=== PATIENT | male | born 1965 | race Two or more races ===

== ENCOUNTER 2018-02-24 04:16 | Emergency (ER) | payer SELFPAY ==
[~2018-02-24] VITALS: Ht 162.6 cm; Wt 77.1 kg
[~2018-02-24 04:16] MED LIST: CITA10TA8 PO
--- NOTE | 2018-02-24 04:32 | PHYS DOC ---
Past Medical History Past Medical History: Depression, Hypertension Past Surgical History: Other Additional Past Surgical Histo: Hernia repair, cyst removal Alcohol Use: Heavy Drug Use: None Adult General Chief Complaint Chief Complaint: ALCOHOL INTOXICATION HPI HPI Patient is a 52 year old man who presents with alcohol intoxication Patient has a history of alcoholism. He's been drinking heavily for 20 years. Over the last 3 weeks, he's been binge drinking about a fifth of vodka daily. He decided to stop drinking, but didn't have a phone at his house so he went outside and flagged down a car to use a cell phone. They called 911 and EMS brought him to the emergency department. He is currently seeking alcohol detoxification. His last drink was 30 minutes prior to presentation. He had a shot of vodka. He denies any chest pain, shortness of breath, abdominal pain or vomiting. He denies SI or HI. Review of Systems Review of Systems Constitutional: Denies fever or chills Eyes: Denies change in visual acuity, redness, or eye pain HENT: Denies nasal congestion or sore throat Respiratory: Denies cough or shortness of breath Cardiovascular: Denies chest pain or palpitations GI: Denies abdominal pain, nausea, vomiting, bloody stools or diarrhea : Denies dysuria or hematuria Musculoskeletal: Denies back pain or joint pain Integument: Denies rash or skin lesions Neurologic: Denies headache, focal weakness or sensory changes Endocrine: Denies polyuria or polydipsia All other systems were reviewed and found to be within normal limits, except as documented in this note. Current Medications Current Medications Current Medications Medications (Trade) Dose Ordered Sig/Flaquita Start Time Stop Time Status Last Admin Dose Admin Lorazepam (Ativan) 1 mg 1X ONCE 02/24/18 07:15 02/24/18 07:16 DC 02/24/18 07:16 1 MG Potassium Chloride (KCl Oral Soln) 40 meq 1X ONCE 02/24/18 05:30 02/24/18 05:31 DC 02/24/18 05:40 40 MEQ Allergies Allergies Allergies Coded Allergies Type Severity Reaction Last Updated Verified aspirin Allergy Intermediate 02/24/18 Yes Physical Exam Physical Exam Constitutional: Well developed, well nourished, no acute distress, non-toxic appearance. Inebriated HENT: Normocephalic, atraumatic, bilateral external ears normal, oropharynx moist, no oral exudates, nose normal. Eyes: PERRLA, EOMI, conjunctiva normal, no discharge. Neck: Normal range of motion, no tenderness, supple, no stridor. Cardiovascular:Heart rate regular rhythm, no murmur Lungs & Thorax: Bilateral breath sounds clear to auscultation Abdomen: Bowel sounds normal, soft, no tenderness, no masses, no pulsatile masses. Skin: Warm, dry, no erythema, no rash. Back: No tenderness, no CVA tenderness. Extremities: No tenderness, no cyanosis, no clubbing, ROM intact, no edema. 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 Gait normal Psychologic: Affect normal, judgement normal, mood normal. Current Patient Data Vital Signs Vital Signs Date Time Temp Pulse Resp B/P (MAP) Pulse Ox O2 Delivery O2 Flow Rate FiO2 02/24/18 08:24 107 14 154/87 (109) 98 Room Air 02/24/18 04:27 98.6 98.6 Lab Values Laboratory Tests Test 02/24/18 04:30 02/24/18 04:48 White Blood Count 4.9 x10^3/uL (4.0-11.0) Red Blood Count 4.82 x10^6/uL (4.30-5.70) Hemoglobin 15.2 g/dL (13.0-17.5) Hematocrit 43.0 % (39.0-53.0) Mean Corpuscular Volume 89 fL (79-100) Mean Corpuscular Hemoglobin 32 pg (25-35) Mean Corpuscular Hemoglobin Concent 35 g/dL (31-37) Red Cell Distribution Width 18.1 % (11.5-14.5) H Platelet Count 253 x10^3/uL (140-400) Neutrophils (%) (Auto) 50 % (31-73) Lymphocytes (%) (Auto) 35 % (24-48) Monocytes (%) (Auto) 13 % (0-9) H Eosinophils (%) (Auto) 1 % (0-3) Basophils (%) (Auto) 1 % (0-3) Neutrophils # (Auto) 2.4 x10^3uL (1.8-7.7) Lymphocytes # (Auto) 1.7 x10^3/uL (1.0-4.8) Monocytes # (Auto) 0.7 x10^3/uL (0.0-1.1) Eosinophils # (Auto) 0.1 x10^3/uL (0.0-0.7) Basophils # (Auto) 0.0 x10^3/uL (0.0-0.2) Sodium Level 140 mmol/L (136-145) Potassium Level 3.2 mmol/L (3.5-5.1) L Chloride Level 98 mmol/L (98-107) Carbon Dioxide Level 25 mmol/L (21-32) Anion Gap 17 (6-14) H Blood Urea Nitrogen 10 mg/dL (8-26) Creatinine 0.8 mg/dL (0.7-1.3) Estimated GFR (Cockcroft-Gault) 100.7 BUN/Creatinine Ratio 13 (6-20) Glucose Level 129 mg/dL (70-99) H Calcium Level 9.4 mg/dL (8.5-10.1) Magnesium Level 1.9 mg/dL (1.8-2.4) Total Bilirubin 0.9 mg/dL (0.2-1.0) Aspartate Amino Transferase (AST) 80 U/L (15-37) H Alanine Aminotransferase (ALT) 185 U/L (16-63) H Alkaline Phosphatase 108 U/L (46-116) Total Protein 8.4 g/dL (6.4-8.2) H Albumin 4.5 g/dL (3.4-5.0) Albumin/Globulin Ratio 1.2 (1.0-1.7) Lipase 220 U/L (73-393) Ethyl Alcohol Level 138 mg/dL (0-10) H Urine Opiates Screen Neg (NEG) Urine Methadone Screen Neg (NEG) Urine Barbiturates Neg (NEG) Urine Phencyclidine Screen Neg (NEG) Urine Amphetamine/Methamphetamine Neg (NEG) Urine Benzodiazepines Screen Pos (NEG) Urine Cocaine Screen Neg (NEG) Urine Cannabinoids Screen Neg (NEG) Urine Ethyl Alcohol Pos (NEG) Laboratory Tests 02/24/18 04:30 Laboratory Tests 02/24/18 04:30 EKG EKG ECG 04:50 NSR @ [address]-T wave changes Radiology/Procedures Radiology/Procedures [] Course & Med Decision Making Course & Med Decision Making Pertinent Labs and Imaging studies reviewed. (See chart for details) Emergency Department Course Patient presents inebriated for alcohol detoxification program. DDx-alcohol abuse, poly substance abuse, dehydration, electrolyte abnormality Patient was stable in the ED. Labs remarkable for hypokalemia, elevated serum alcohol level. Patient was given potassium replacement. 05:20: Patient medically cleared for detox evaluation. 05:20 Case discussed with [facility] psychiatric team who will come to the ED to evaluate the patient. 05:55 Stacey from [facility] is here evaluating the patient. Patient will follow-up with alcohol detox program per [facility]. Will discharge from ED. Patient given prescriptions for Librium and potassium. Dragon Disclaimer Dragon Disclaimer This electronic medical record was generated, in whole or in part, using a voice recognition dictation system. Departure Departure Impression: Primary Impression: Alcohol intoxication Additional Impressions: Depression Hypokalemia Disposition: 01 HOME, SELF-CARE Condition: STABLE Referrals: NO PCP (PCP) CASSY OCHOA MD Follow-up tomorrow for further evaluation Patient Instructions: Alcohol Intoxication, Alcohol Withdrawal, Depression, Adult, Hypokalemia Additional Instructions: Follow-up with [facility] adult alcohol detoxification program at Emergency Department discharge. [facility] Address: [address] [place] [address] Scripts Chlordiazepoxide Hcl (CHLORDIAZEPOXIDE HCL) 25 Mg Capsule 25 MG PO TID for 5 Days, #15 CAP Prov: VERO IQBAL MD 02/24/18 Potassium Chloride (POTASSIUM CHLORIDE) 20 Meq Tablet.er 20 MEQ PO DAILY for 5 Days, #5 TAB.SR Prov: VERO IQBAL MD 02/24/18 Problem Qualifiers Primary Impression: Alcohol intoxication Complication of substance-induced condition: with unspecified complication Qualified Codes: F10.929 - Alcohol use, unspecified with intoxication, unspecified Additional Impressions: Depression Depression Type: unspecified Qualified Codes: F32.9 - Major depressive disorder, single episode, unspecified VERO IQBAL MD Feb 24, 2018 04:32
[2018-02-24 04:36] LABS: BASO % 1 % (0-3); EOS # 0.1 x10^3/uL (0.0-0.7); EOS % 1 % (0-3); HEMOGLOBIN 15.2 g/dL (13.0-17.5); LYMPH # 1.7 x10^3/uL (1.0-4.8); LYMPH % 35 % (24-48); MEAN CORPUSCULAR HEMOGLOBIN 32 pg (25-35); MEAN CORPUSCULAR HGB CONC 35 g/dL (31-37); MEAN CORPUSCULAR VOLUME 89 fL (79-100); MONO # 0.7 x10^3/uL (0.0-1.1); MONO % 13 % (0-9); NEUT # 2.4 x10^3uL (1.8-7.7); NEUT % 50 % (31-73); PLATELET COUNT 253 x10^3/uL (140-400); RED BLOOD COUNT 4.82 x10^6/uL (4.30-5.70); RED CELL DISTRIBUTION WIDTH 18.1 % (11.5-14.5); WHITE BLOOD COUNT 4.9 x10^3/uL (4.0-11.0)
[2018-02-24 04:46] LABS: CALCIUM 9.4 mg/dL (8.5-10.1); CREATININE 0.8 mg/dL (0.7-1.3); GFR 100.7; POTASSIUM 3.2 mmol/L (3.5-5.1)
[2018-02-24 04:51] LABS: ALBUMIN 4.5 g/dL (3.4-5.0); ALBUMIN/GLOBULIN RATIO 1.2 (1.0-1.7); MAGNESIUM 1.9 mg/dL (1.8-2.4); TOTAL BILIRUBIN 0.9 mg/dL (0.2-1.0); TOTAL PROTEIN 8.4 g/dL (6.4-8.2)
[2018-02-24 05:10] LABS: BARBITURATES NEG (NEG); BENZODIAZEPINES POS (NEG); CANNABINOIDS NEG (NEG); COCAINE NEG (NEG); METHADONE NEG (NEG); OPIATES NEG (NEG); PHENCYCLIDINE NEG (NEG)
[2018-02-24 05:12] LABS: AMPHETAMINE/METHAMPHETAMINE NEG (NEG)
[2018-02-24] MEDS ORDERED: POTASSIUM CHLORIDE 20 MEQ/15 ML ORAL LIQUID. PO ONE (05:30)
[2018-02-24] MEDS ORDERED: POTA20TA82 PO (06:01)
--- NOTE | 2018-02-24 06:02 | EKG ---
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
[2018-02-24] MEDS ORDERED: CHLO25CA9 PO (06:24)
[2018-02-24 08:24] VITALS: BP 154/87
== END 2018-02-24 08:30 | disposition home or self-care (01) ==
LOC: ER 04:16
DX: F10.229 Alcohol dependence with intoxication, unspecified (principal); E87.6 Hypokalemia; F32.9 Major depressive disorder, single episode, unspecified; I10 Essential (primary) hypertension; Z88.6 Allergy status to analgesic agent; Y90.6 Blood alcohol level of 120-199 mg/100 ml
CPT/HCPCS: 36415; 80053; 80307; 83690; 83735; 85025; 93005; 96374; 99285; G0480; J2060; G0479

== ENCOUNTER 2019-05-13 19:16 | Inpatient (IN) | payer MEDICAID ==
[~2019-05-13] VITALS: Ht 162.6 cm; Wt 73.0 kg
[~2019-05-13 19:16] MED LIST changes: +CHLO25CA9 PO; +POTA20TA4 PO
[2019-05-13 19:59] LABS: BILIRUBIN,URINE NEGATIVE (NEG); CLARITY,URINE CLEAR; COLOR,URINE YELLOW; NITRITE,URINE NEGATIVE (NEG); PROTEIN,URINE NEGATIVE (NEG-TRACE); UROBILINOGEN,URINE 0.2 mg/dL (0.2 mg/dL)
[2019-05-13] MEDS ORDERED: MULTIVIT INFUSN,ADULT 4,VIT K 10 ML, THIAMINE INJ 100 MG, FOLIC ACID INJ 1 MG in IV NOR... IV ONE (20:00)
[2019-05-13 20:05] LABS: AMPHETAMINE/METHAMPHETAMINE NEG (NEG); BARBITURATES NEG (NEG); BENZODIAZEPINES NEG (NEG); CANNABINOIDS NEG (NEG); COCAINE NEG (NEG); METHADONE NEG (NEG); OPIATES NEG (NEG); PHENCYCLIDINE NEG (NEG)
[2019-05-13 20:06] LABS: CALCIUM 8.9 mg/dL (8.5-10.1); CREATININE 0.9 mg/dL (0.7-1.3); GFR 87.6
[2019-05-13 20:12] LABS: ALBUMIN 4.1 g/dL (3.4-5.0); ALBUMIN/GLOBULIN RATIO 1.2 (1.0-1.7); TOTAL BILIRUBIN 0.7 mg/dL (0.2-1.0); TOTAL PROTEIN 7.6 g/dL (6.4-8.2)
[2019-05-13 20:14] LABS: HYALINE CASTS, URINE FEW /HPF; SQUAMOUS EPITHELIAL CELL,UR OCC /LPF
[2019-05-13 20:15] LABS: BACTERIA,URINE 0 /HPF (0-FEW); RBC,URINE 0 /HPF (0-2)
[2019-05-13 20:15] LABS: BASO % 1 % (0-3); EOS % 0 % (0-3); HEMOGLOBIN 16.7 g/dL (13.0-17.5); LYMPH # 2.3 x10^3/uL (1.0-4.8); LYMPH % 40 % (24-48); MEAN CORPUSCULAR HEMOGLOBIN 33 pg (25-35); MEAN CORPUSCULAR HGB CONC 35 g/dL (31-37); MEAN CORPUSCULAR VOLUME 94 fL (79-100); MONO # 0.5 x10^3/uL (0.0-1.1); MONO % 9 % (0-9); NEUT # 2.8 x10^3/uL (1.8-7.7); NEUT % 50 % (31-73); PLATELET COUNT 242 x10^3/uL (140-400); RED BLOOD COUNT 5.12 x10^6/uL (4.30-5.70); RED CELL DISTRIBUTION WIDTH 15.8 % (11.5-14.5); WHITE BLOOD COUNT 5.6 x10^3/uL (4.0-11.0)
[2019-05-13 20:18] LABS: ACETAMIN < 2 mcg/ml (10-30); ETHANOL 388 mg/dL (0-10); SALIC 4.4 mg/dL (2.8-20.0)
[2019-05-13] MEDS ORDERED: IOHEXOL 300 MG/ML 100ML VIAL. IV ONE (21:30)
[2019-05-13] MEDS ORDERED: CONTRAST GIVEN. MC PRN (21:30)
--- NOTE | 2019-05-13 22:11 | PHYS DOC ---
Past Medical History Past Medical History: Alcoholism, Depression, Hypertension Past Surgical History: Other Additional Past Surgical Histo: Hernia repair, cyst removal Alcohol Use: Heavy Additional Information: DRINKS VODKA Drug Use: None Adult General Chief Complaint Chief Complaint: SUICDAL IDEATION HPI HPI Patient is a 53 year old Male with history of depression, hypertension, alcohol abuse, who presents to the ED today complaining of alcohol intoxication and suicidal ideations. Patient reports he has been drinking for the last 1 week, he was found in the wolf complaining of alcohol intoxication and suicide ideations. He reports if he had a gun he would've shot himself but he has no access to a gun. Review of Systems Review of Systems Constitutional: Denies fever or chills [] Eyes: Denies change in visual acuity, redness, or eye pain [] HENT: Denies nasal congestion or sore throat [] Respiratory: Denies cough or shortness of breath [] Cardiovascular: No additional information not addressed in HPI [] GI: Denies abdominal pain, nausea, vomiting, bloody stools or diarrhea [] : Denies dysuria or hematuria [] Musculoskeletal: Denies back pain or joint pain [] Integument: Denies rash or skin lesions [] Neurologic: Denies headache, focal weakness or sensory changes [] Psych: alcohol intoxication and suicide ideation All other systems were reviewed and found to be within normal limits, except as documented in this note. Current Medications Current Medications Current Medications Medications (Trade) Dose Ordered Sig/Flaquita Start Time Stop Time Status Last Admin Dose Admin Info (CONTRAST GIVEN -- Rx MONITORING) 1 each PRN DAILY PRN 05/13/19 21:30 05/15/19 21:29 Iohexol (Omnipaque 300 Mg/ml) 75 ml 1X ONCE 05/13/19 21:30 05/13/19 21:31 DC Lorazepam (Ativan Inj) 2 mg 1X ONCE 05/13/19 20:15 05/13/19 20:19 DC 05/13/19 19:40 2 MG Multivitamins 10 ml/Thiamine HCl 100 mg/Folic Acid 1 mg/Sodium Chloride 1,011.2 ml @ 1,000.088 mls/hr 1X ONCE 05/13/19 20:00 05/13/19 21:00 DC 05/13/19 19:56 1,000.088 MLS/HR Allergies Allergies Allergies Coded Allergies Type Severity Reaction Last Updated Verified aspirin Allergy Intermediate 02/24/18 Yes Physical Exam Physical Exam Constitutional: Well developed, well nourished, no acute distress, non-toxic a ppearance. [] HENT: Normocephalic, atraumatic, bilateral external ears normal, oropharynx moist, no oral exudates, nose normal. [] Eyes: PERRLA, EOMI, conjunctiva normal, no discharge. [] Neck: Normal range of motion, no tenderness, supple, no stridor. [] Cardiovascular:Heart rate regular rhythm, no murmur [] Lungs & Thorax: Bilateral breath sounds clear to auscultation [] Abdomen: Bowel sounds normal, soft, no tenderness, no masses, no pulsatile masses. [] Skin: Warm, dry, no erythema, no rash. [] Back: No tenderness, no CVA tenderness. [] Extremities: No tenderness, no cyanosis, no clubbing, ROM intact, no edema. [] Neurologic: Alert and oriented X 3, normal motor function, normal sensory function, no focal deficits noted. [] Psychologic: flat affect, appears intoxicated Current Patient Data Vital Signs Vital Signs Date Time Temp Pulse Resp B/P (MAP) Pulse Ox O2 Delivery O2 Flow Rate FiO2 05/13/19 19:16 97.7 86 20 184/100 (128) 97 Room Air 97.7 Lab Values Laboratory Tests Test 05/13/19 19:30 05/13/19 19:40 Urine Collection Type Unknown Urine Color Yellow Urine Clarity Clear Urine pH 6.0 Urine Specific [place] 1.010 Urine Protein Negative mg/dL (NEG-TRACE) Urine Glucose (UA) Negative mg/dL (NEG) Urine Ketones (Stick) Negative mg/dL (NEG) Urine Blood Negative (NEG) Urine Nitrite Negative (NEG) Urine Bilirubin Negative (NEG) Urine Urobilinogen Dipstick 0.2 mg/dL (0.2 mg/dL) Urine Leukocyte Esterase Negative (NEG) Urine RBC 0 /HPF (0-2) Urine WBC 5-10 /HPF (0-4) Urine Squamous Epithelial Cells Occ /LPF Urine Bacteria 0 /HPF (0-FEW) Urine Hyaline Casts Few /HPF Urine Mucus Slight /LPF Urine Opiates Screen Neg (NEG) Urine Methadone Screen Neg (NEG) Urine Barbiturates Neg (NEG) Urine Phencyclidine Screen Neg (NEG) Urine Amphetamine/Methamphetamine Neg (NEG) Urine Benzodiazepines Screen Neg (NEG) Urine Cocaine Screen Neg (NEG) Urine Cannabinoids Screen Neg (NEG) Urine Ethyl Alcohol Pos (NEG) White Blood Count 5.6 x10^3/uL (4.0-11.0) Red Blood Count 5.12 x10^6/uL (4.30-5.70) Hemoglobin 16.7 g/dL (13.0-17.5) Hematocrit 48.0 % (39.0-53.0) Mean Corpuscular Volume 94 fL (79-100) Mean Corpuscular Hemoglobin 33 pg (25-35) Mean Corpuscular Hemoglobin Concent 35 g/dL (31-37) Red Cell Distribution Width 15.8 % (11.5-14.5) H Platelet Count 242 x10^3/uL (140-400) Neutrophils (%) (Auto) 50 % (31-73) Lymphocytes (%) (Auto) 40 % (24-48) Monocytes (%) (Auto) 9 % (0-9) Eosinophils (%) (Auto) 0 % (0-3) Basophils (%) (Auto) 1 % (0-3) Neutrophils # (Auto) 2.8 x10^3/uL (1.8-7.7) Lymphocytes # (Auto) 2.3 x10^3/uL (1.0-4.8) Monocytes # (Auto) 0.5 x10^3/uL (0.0-1.1) Eosinophils # (Auto) 0.0 x10^3/uL (0.0-0.7) Basophils # (Auto) 0.0 x10^3/uL (0.0-0.2) Sodium Level 144 mmol/L (136-145) Potassium Level 4.0 mmol/L (3.5-5.1) Chloride Level 105 mmol/L (98-107) Carbon Dioxide Level 27 mmol/L (21-32) Anion Gap 12 (6-14) Blood Urea Nitrogen 10 mg/dL (8-26) Creatinine 0.9 mg/dL (0.7-1.3) Estimated GFR (Cockcroft-Gault) 87.6 BUN/Creatinine Ratio 11 (6-20) Glucose Level 116 mg/dL (70-99) H Calcium Level 8.9 mg/dL (8.5-10.1) Total Bilirubin 0.7 mg/dL (0.2-1.0) Aspartate Amino Transferase (AST) 76 U/L (15-37) H Alanine Aminotransferase (ALT) 41 U/L (16-63) Alkaline Phosphatase 98 U/L (46-116) Total Protein 7.6 g/dL (6.4-8.2) Albumin 4.1 g/dL (3.4-5.0) Albumin/Globulin Ratio 1.2 (1.0-1.7) Lipase 709 U/L (73-393) H Salicylates Level 4.4 mg/dL (2.8-20.0) Salicylate Last Dose Date Unknown Salicylate Last Dose Time Unknown Acetaminophen Level < 2 mcg/ml (10-30) L Acetaminophen Last Dose Date Unknown Acetaminophen Last Dose Time Unknown Ethyl Alcohol Level 388 mg/dL (0-10) H Laboratory Tests 05/13/19 19:40 Laboratory Tests 05/13/19 19:40 EKG EKG [] Radiology/Procedures Radiology/Procedures [] Course & Med Decision Making Course & Med Decision Making Pertinent Labs and Imaging studies reviewed. (See chart for details) This is a 53-year-old alcoholic male patient presenting to the ED today complaining of alcohol intoxication and suicide ideations.see history of present illness. Patient was placed on 06-02 on arrival to the ED. CBC with no acute findings.CMP with AST of 76, glucose 116, lipase 709. Patient was given a banana bag Spoke to the PAT team they will follow up with patient tomorrow Pending results for CT of the abdomen and pelvic Admitted with IV fluids and routine consult for GI Dragon Disclaimer Dragon Disclaimer This electronic medical record was generated, in whole or in part, using a voice recognition dictation system. Departure Departure Impression: Primary Impression: Suicidal ideation Additional Impressions: ETOH abuse Pancreatitis, acute Disposition: 09 ADMITTED INPATIENT Condition: STABLE Referrals: NO PCP (PCP) Problem Qualifiers Additional Impressions: Pancreatitis, acute Pancreatitis type: alcohol induced Acute pancreatitis complication: unspecified Qualified Codes: K85.20 - Alcohol induced acute pancreatitis without necrosis or infection ROXANA WOODSON APRN May 13, 2019 22:11
[2019-05-13] MEDS ORDERED: ACETAMINOPHEN 325 MG TABLET. PO PRN (22:15)
[2019-05-13] MEDS ORDERED: IV NORMAL SALINE 1000ML BAG 1,000 ML IV ONE (22:15)
[2019-05-13] MEDS ORDERED: ONDANSETRON PF 4 MG/2 ML VIAL. IV PRN (22:15)
--- NOTE | 2019-05-13 22:17 | RAD ---
Study: CT abdomen/pelvis with intravenous contrast Indication: Abdominal pain. Elevated lipase. Comparison: None. Technique: Helical CT imaging performed of the abdomen and pelvis after the intravenous administration of 75 cc Omnipaque 300 contrast. Sagittal and coronal reformats were obtained. One or more of the following individualized dose reduction techniques were utilized for this examination: 1. Automated exposure control 2. Adjustment of the mA and/or kV according to patient size 3. Use of iterative reconstruction technique. Findings: Motion degraded evaluation of the lower lungs. Bibasilar volume loss. Gynecomastia. Motion degraded evaluation of the abdomen and pelvis in addition to study degradation due to streak artifact from the patient's arms. No overt peripancreatic inflammation. No obvious pancreatic necrosis. Diffuse low-attenuation of the liver. Small spleen with several granulomas. Unremarkable adrenal glands and gallbladder. No suspicious renal abnormality. No hydroureteronephrosis. Unremarkable urinary bladder. The prostate is enlarged. Diverticulosis without findings of diverticulitis. Short segment wall thickening of the colon in the region of the descending/sigmoid junction, image 63 series 2. Mild wall thickening of the distal transverse colon approaching the splenic flexure on image 27 series 2 however favored secondary to collapse. Unremarkable appendix. Nonobstructed small bowel. Thickened gastric wall at the fundal region but this is nonspecific in the setting of incomplete distention. Probable small hiatal hernia. Multifocal calcified and noncalcified atherosclerotic plaque throughout the abdominal aorta and bilateral iliofemoral systems. No aneurysmal dilatation. Retroaortic left renal vein. No free fluid or air. No acute osseous abnormality. Impression: 1. The study is degraded due to a combination of motion artifact as well as streak artifact from the patient's arms which overlie their sides. 2. No pancreatic necrosis is seen or overt peripancreatic inflammation in the setting of reported elevated lipase levels noting study degradation this region. Low-attenuation of the liver suggesting a degree of fatty infiltration or other causes of hepatocellular dysfunction. No CT findings of acute cholecystitis. 3. Mild colonic diverticulosis without diverticulitis. Mild thickening of the colonic wall in the region of the descending colon/sigmoid junction at the location of diverticulosis favored unlikely a malignant process though colonoscopy could be performed for further evaluation if not done recently. No surrounding inflammatory changes or lymphadenopathy. 4. Prostatomegaly. 5. Additional chronic findings as above. Electronically signed by: FLOR ULLOA MD (05/13/2019 10:14 PM) [id number]
[2019-05-13 22:30] VITALS: BP 172/102
--- NOTE | 2019-05-13 22:30 | NUR ---
ADMISSION NOTE: Patient arrived to room 552 via wheelchair accompanied by ED staff. Patient able to transfer self to bed with standby assistance. Bed low, locked, call light with ED staff. ED staff to stay with patient for 1:1 obs until additional staff is obtained. Belongings bags were placed in med room, patient sticker present on bags. Patient continues to ask "Will you help me ?" Reinforced that that is not an option and why patient is in hospital. Awaiting PAT team arrival for assessment.
--- NOTE | 2019-05-14 00:03 | NUR ---
PATIENT BELONGINGS NOTE: Took inventory of patient's belongings. No shoes present. Called ER to see if they were left downstairs, d/t patient being found wandering outside in winter weather. Per Kayla HOYT, no shoes were found in ER. Will pass along to day RN.
[2019-05-14] MEDS ORDERED: NICOTINE 21MG PATCH. TD PRN (00:45)
[2019-05-14 03:00] VITALS: BP 157/95
[2019-05-14 07:08] VITALS: BP 163/101
[2019-05-14] MEDS: MULTIVIT INFUSN,ADULT 4,VIT K 10 ML, THIAMINE INJ 100 MG, FOLIC ACID INJ 1 MG in IV NOR... IV SCH (08:55)
[2019-05-14] MEDS: IV NORMAL SALINE 1000ML BAG 1,000 ML IV SCH ×2 (08:56→21:05)
[2019-05-14] MEDS: cloNIDine HCL 0.1 MG TABLET PO PRN (08:56)
[2019-05-14 11:00] VITALS: BP 153/90
--- NOTE | 2019-05-14 11:39 | NUR ---
SW following for discharge planning. Chart reviewed, discussed with RN. Pt is currently 1:1 for SI. FRANSISCO contacted Katie (PAT team) for referral, Harish will meet with pt today for BALDEV navarro. SW will continue to follow. Addendum: 05/14/19 at 1444 by KENZIE URBINA SW Harish ([facility] team) met with pt, he is familiar with pt. Pt denied SI, depression, anxiety. He denied any need for services. Pt had completed a [facility] assessment in October however did not follow up with the recommendations. Pt is wanting to go to work on Friday so denied a new RADAC assessment for that day. No further SW needs at this time. RN notified. SW will continue to follow.
[2019-05-14 12:30] LABS: PROTHROMBIN TIME PATIENT 12.2 SEC (11.7-14.0)
--- NOTE | 2019-05-14 12:42 | PDOC2 ---
CONSULT Date of Consult Date of Consult DATE: 05/14/19 TIME: 12:41 Reason for Consult Reason for Consult: alcoholic pancreatitis Past Medical History Cardiovascular: No pertinent hx Pulmonary: No pertinent hx GI: No pertinent hx Heme/Onc: No pertinent hx Past Surgical History Past Surgical History: No pertinent history Family History Family History: Family History Unknown Social History ALCOHOL: heavy Drugs: None Current Problem List Problem List Problems Medical Problems: (1) Pancreatitis, acute Status: Acute Current Medications Current Medications Current Medications Lorazepam (Ativan Inj) 2 mg STK-MED ONCE .ROUTE ; Start 05/13/19 at 19:37; Stop 05/13/19 at 19:37; Status DC Multivitamins 10 ml/Thiamine HCl 100 mg/Folic Acid 1 mg/Sodium Chloride 1,011.2 ml @ 1,000.088 mls/hr 1X ONCE IV Last administered on 05/13/19at 19:56; Start 05/13/19 at 20:00; Stop 05/13/19 at 21:00; Status DC Lorazepam (Ativan Inj) 2 mg 1X ONCE IVP Last administered on 05/13/19at 19:40; Start 05/13/19 at 20:15; Stop 05/13/19 at 20:19; Status DC Iohexol (Omnipaque 300 Mg/ml) 75 ml 1X ONCE IV Last administered on 05/13/19at 21:30; Start 05/13/19 at 21:30; Stop 05/13/19 at 21:31; Status DC Info (CONTRAST GIVEN -- Rx MONITORING) 1 each PRN DAILY PRN MC SEE COMMENTS; Start 05/13/19 at 21:30; Stop 05/15/19 at 21:29 Ondansetron HCl (Zofran) 4 mg PRN Q8HRS PRN IV NAUSEA/VOMITING; Start 05/13/19 at 22:15; Stop 05/14/19 at 22:14 Acetaminophen (Tylenol) 650 mg PRN Q4HRS PRN PO FEVER; Start 05/13/19 at 22:15; Stop 05/14/19 at 22:14 Multivitamins 10 ml/Thiamine HCl 100 mg/Folic Acid 1 mg/Sodium Chloride 1,011.2 ml @ 100 mls/ hr DAILY IV Last administered on 05/14/19at 08:55; Start 05/14/19 at 09:00; Stop 05/18/19 at 19:07 Lorazepam (Ativan Inj) 2 mg PRN Q1HR PRN IV For CIWA 8-14 Last administered on 05/14/19 08:57; Start 05/13/19 at 22:15 Clonidine HCl (Catapres) 0.1 mg PRN Q1HR PRN PO SBP > 180 or DBP > 100, MRX3 Last administered on 05/14/19 08:56; Start 05/13/19 at 22:15 Sodium Chloride 1,000 ml @ 125 mls/hr 1X ONCE IV Last administered on 05/13/19 22:45; Start 05/13/19 at 22:15; Stop 05/14/19 at 06:14; Status DC Nicotine (Nicoderm Cq 21mg) 1 patch PRN DAILY PRN TD SMOKING CESSATION Last administered on 05/14/19 00:52; Start 05/14/19 at 00:45 Sodium Chloride 1,000 ml @ 75 mls/hr [id number] IV Last administered on 05/14/19 08:56; Start 05/14/19 at 07:45 Active Scripts Active Chlordiazepoxide Hcl 25 Mg Capsule 25 Mg PO TID 5 Days Potassium Chloride 20 Meq Tablet.er 20 Meq PO DAILY 5 Days Celexa (Citalopram Hydrobromide) 10 Mg Tablet 1 Tab PO DAILY Allergies Allergies: Coded Allergies: aspirin (Verified Allergy, Intermediate, 02/24/18) Vitals VITALS Vital Signs Date Time Temp Pulse Resp B/P (MAP) Pulse Ox O2 Delivery O2 Flow Rate FiO2 05/14/19 11:00 98.5 105 20 153/90 (111) 96 Room Air 98.5 Labs Labs Laboratory Tests Test 05/13/19 19:30 05/13/19 19:40 05/14/19 11:40 Urine Collection Type Unknown Urine Color Yellow Urine Clarity Clear Urine pH 6.0 Urine Specific [place] 1.010 Urine Protein Negative mg/dL (NEG-TRACE) Urine Glucose (UA) Negative mg/dL (NEG) Urine Ketones (Stick) Negative mg/dL (NEG) Urine Blood Negative (NEG) Urine Nitrite Negative (NEG) Urine Bilirubin Negative (NEG) Urine Urobilinogen Dipstick 0.2 mg/dL (0.2 mg/dL) Urine Leukocyte Esterase Negative (NEG) Urine RBC 0 /HPF (0-2) Urine WBC 5-10 /HPF (0-4) Urine Squamous Epithelial Cells Occ /LPF Urine Bacteria 0 /HPF (0-FEW) Urine Hyaline Casts Few /HPF Urine Mucus Slight /LPF Urine Opiates Screen Neg (NEG) Urine Methadone Screen Neg (NEG) Urine Barbiturates Neg (NEG) Urine Phencyclidine Screen Neg (NEG) Urine Amphetamine/Methamphetamine Neg (NEG) Urine Benzodiazepines Screen Neg (NEG) Urine Cocaine Screen Neg (NEG) Urine Cannabinoids Screen Neg (NEG) Urine Ethyl Alcohol Pos (NEG) White Blood Count 5.6 x10^3/uL (4.0-11.0) Red Blood Count 5.12 x10^6/uL (4.30-5.70) Hemoglobin 16.7 g/dL (13.0-17.5) Hematocrit 48.0 % (39.0-53.0) Mean Corpuscular Volume 94 fL (79-100) Mean Corpuscular Hemoglobin 33 pg (25-35) Mean Corpuscular Hemoglobin Concent 35 g/dL (31-37) Red Cell Distribution Width 15.8 % (11.5-14.5) Platelet Count 242 x10^3/uL (140-400) Neutrophils (%) (Auto) 50 % (31-73) Lymphocytes (%) (Auto) 40 % (24-48) Monocytes (%) (Auto) 9 % (0-9) Eosinophils (%) (Auto) 0 % (0-3) Basophils (%) (Auto) 1 % (0-3) Neutrophils # (Auto) 2.8 x10^3/uL (1.8-7.7) Lymphocytes # (Auto) 2.3 x10^3/uL (1.0-4.8) Monocytes # (Auto) 0.5 x10^3/uL (0.0-1.1) Eosinophils # (Auto) 0.0 x10^3/uL (0.0-0.7) Basophils # (Auto) 0.0 x10^3/uL (0.0-0.2) Sodium Level 144 mmol/L (136-145) Potassium Level 4.0 mmol/L (3.5-5.1) Chloride Level 105 mmol/L (98-107) Carbon Dioxide Level 27 mmol/L (21-32) Anion Gap 12 (6-14) Blood Urea Nitrogen 10 mg/dL (8-26) Creatinine 0.9 mg/dL (0.7-1.3) Estimated GFR (Cockcroft-Gault) 87.6 BUN/Creatinine Ratio 11 (6-20) Glucose Level 116 mg/dL (70-99) Calcium Level 8.9 mg/dL (8.5-10.1) Total Bilirubin 0.7 mg/dL (0.2-1.0) Aspartate Amino Transf (AST/SGOT) 76 U/L (15-37) Alanine Aminotransferase (ALT/SGPT) 41 U/L (16-63) Alkaline Phosphatase 98 U/L (46-116) Total Protein 7.6 g/dL (6.4-8.2) Albumin 4.1 g/dL (3.4-5.0) Albumin/Globulin Ratio 1.2 (1.0-1.7) Lipase 709 U/L (73-393) Salicylates Level 4.4 mg/dL (2.8-20.0) Salicylate Last Dose Date Unknown Salicylate Last Dose Time Unknown Acetaminophen Level < 2 mcg/ml (10-30) Acetaminophen Last Dose Date Unknown Acetaminophen Last Dose Time Unknown Ethyl Alcohol Level 388 mg/dL (0-10) Prothrombin Time 12.2 SEC (11.7-14.0) Prothromb Time International Ratio 0.9 (0.8-1.1) Laboratory Tests Test 05/13/19 19:30 05/13/19 19:40 05/14/19 11:40 Urine Collection Type Unknown Urine Color Yellow Urine Clarity Clear Urine pH 6.0 Urine Specific [place] 1.010 Urine Protein Negative mg/dL (NEG-TRACE) Urine Glucose (UA) Negative mg/dL (NEG) Urine Ketones (Stick) Negative mg/dL (NEG) Urine Blood Negative (NEG) Urine Nitrite Negative (NEG) Urine Bilirubin Negative (NEG) Urine Urobilinogen Dipstick 0.2 mg/dL (0.2 mg/dL) Urine Leukocyte Esterase Negative (NEG) Urine RBC 0 /HPF (0-2) Urine WBC 5-10 /HPF (0-4) Urine Squamous Epithelial Cells Occ /LPF Urine Bacteria 0 /HPF (0-FEW) Urine Hyaline Casts Few /HPF Urine Mucus Slight /LPF Urine Opiates Screen Neg (NEG) Urine Methadone Screen Neg (NEG) Urine Barbiturates Neg (NEG) Urine Phencyclidine Screen Neg (NEG) Urine Amphetamine/Methamphetamine Neg (NEG) Urine Benzodiazepines Screen Neg (NEG) Urine Cocaine Screen Neg (NEG) Urine Cannabinoids Screen Neg (NEG) Urine Ethyl Alcohol Pos (NEG) White Blood Count 5.6 x10^3/uL (4.0-11.0) Red Blood Count 5.12 x10^6/uL (4.30-5.70) Hemoglobin 16.7 g/dL (13.0-17.5) Hematocrit 48.0 % (39.0-53.0) Mean Corpuscular Volume 94 fL (79-100) Mean Corpuscular Hemoglobin 33 pg (25-35) Mean Corpuscular Hemoglobin Concent 35 g/dL (31-37) Red Cell Distribution Width 15.8 % (11.5-14.5) Platelet Count 242 x10^3/uL (140-400) Neutrophils (%) (Auto) 50 % (31-73) Lymphocytes (%) (Auto) 40 % (24-48) Monocytes (%) (Auto) 9 % (0-9) Eosinophils (%) (Auto) 0 % (0-3) Basophils (%) (Auto) 1 % (0-3) Neutrophils # (Auto) 2.8 x10^3/uL (1.8-7.7) Lymphocytes # (Auto) 2.3 x10^3/uL (1.0-4.8) Monocytes # (Auto) 0.5 x10^3/uL (0.0-1.1) Eosinophils # (Auto) 0.0 x10^3/uL (0.0-0.7) Basophils # (Auto) 0.0 x10^3/uL (0.0-0.2) Sodium Level 144 mmol/L (136-145) Potassium Level 4.0 mmol/L (3.5-5.1) Chloride Level 105 mmol/L (98-107) Carbon Dioxide Level 27 mmol/L (21-32) Anion Gap 12 (6-14) Blood Urea Nitrogen 10 mg/dL (8-26) Creatinine 0.9 mg/dL (0.7-1.3) Estimated GFR (Cockcroft-Gault) 87.6 BUN/Creatinine Ratio 11 (6-20) Glucose Level 116 mg/dL (70-99) Calcium Level 8.9 mg/dL (8.5-10.1) Total Bilirubin 0.7 mg/dL (0.2-1.0) Aspartate Amino Transf (AST/SGOT) 76 U/L (15-37) Alanine Aminotransferase (ALT/SGPT) 41 U/L (16-63) Alkaline Phosphatase 98 U/L (46-116) Total Protein 7.6 g/dL (6.4-8.2) Albumin 4.1 g/dL (3.4-5.0) Albumin/Globulin Ratio 1.2 (1.0-1.7) Lipase 709 U/L (73-393) Salicylates Level 4.4 mg/dL (2.8-20.0) Salicylate Last Dose Date Unknown Salicylate Last Dose Time Unknown Acetaminophen Level < 2 mcg/ml (10-30) Acetaminophen Last Dose Date Unknown Acetaminophen Last Dose Time Unknown Ethyl Alcohol Level 388 mg/dL (0-10) Prothrombin Time 12.2 SEC (11.7-14.0) Prothromb Time International Ratio 0.9 (0.8-1.1) Assessment/Plan Assessment/Plan Alcocholic pancreatitis- with suicidal ideation, medical therapy for alcohol withdrawal precautions, 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 Full note dictated DAMION ROMO MD May 14, 2019 12:42
--- NOTE | 2019-05-14 13:26 | HP ---
ADMIT DATE: 05/14/2019 CHIEF COMPLAINT: Alcohol intoxication and suicidal ideation. HISTORY OF PRESENT ILLNESS: The patient is a pleasant elderly male, who presented with alcohol intoxication. He is from his . He states he is homeless. He does not have much money. He has been feeling suicidal. He drank too much. He has been drinking about a fifth of vodka. I discussed the case with ER physician. We are going to admit the patient and consult the psychiatric assessment team. PAST MEDICAL HISTORY: Alcohol abuse, depression, anxiety, hypertension, and hernia repair. ALLERGIES: ASPIRIN. FAMILY HISTORY: Coronary artery disease and alcoholism. SOCIAL HISTORY: He drinks alcohol about a fifth of vodka per day. No smoking or drugs. MEDICATIONS: Reviewed. He is on Celexa and potassium. REVIEW OF SYSTEMS: GENERAL: No history of weight change, weakness or fevers. SKIN: No bruising, hair changes or rashes. EYES: No blurred, double or loss of vision. NOSE AND THROAT: No history of nosebleeds, hoarseness or sore throat. HEART: No history of palpitations, chest pain or shortness of breath on exertion. LUNGS: Denies cough, hemoptysis, wheezing or shortness of breath. GASTROINTESTINAL: Denies changes in appetite, nausea, vomiting, diarrhea or constipation. GENITOURINARY: No history of frequency, urgency, hesitancy or nocturia. NEUROLOGIC: Denies history of numbness, tingling, tremor. He complains of weakness. PSYCHIATRIC: No history of panic, anxiety. He complains of depression. ENDOCRINE: No history of heat or cold intolerance, polyuria or polydipsia. EXTREMITIES: Denies muscle weakness, joint pain, pain on walking or stiffness. PHYSICAL EXAMINATION: VITALS: Within normal limits and are stable. GENERAL: No apparent distress. Alert and oriented. HEENT: Normal cephalic atraumatic, external auditory canals are patent EYES: Extraocular muscles are intact, pupils are equally round and reactive to light and accommodation MUSKULOSKELETAL: Well developed, well nourished, good range of motion ENDOCRINE: No thyromegaly was palpated LYMPHATICS: No cervical chain or axillary nodes were noted HEMATOPOIETIC: No bruising NECK: Supple, no JVD, no thyromegaly was noted. LUNGS: Clear to auscultation in all lung wolf without rhonchi or wheezing. HEART: RRR, S1, S2 present. Peripheral pulses intact, no obvious murmurs were noted. ABDOMEN: Soft, nontender. Positive bowel sounds no organomegaly, normal bowel sounds. EXTREMITIES: Without any cyanosis, clubbing, or edema. Pedal pulses intact, Homans sign is negative. NEUROLOGIC: Normal speech, normal tone. A & O x3, moves all extremities, no obvious focal deficits. He is somewhat sleepy, but able to cooperate with my questions. PSYCHIATRIC: Normal affect, normal mood. Stable. SKIN: No ulcerations or rashes, good skin turgor, no jaundice. VASCULAR: Good capillary refill, neurovascular bundle appears to be intact. LABORATORY DATA: Hematology is normal. Electrolytes are normal. INR is 0.9. Drug screen is negative except for alcohol of 388. Urinalysis is negative. ASSESSMENT AND PLAN: Alcoholism with alcohol abuse and alcohol intoxication and suicidal ideation and depression. The patient has been admitted. We will consult the psychiatric assessment team. We will use alcohol withdrawal protocol, IV fluids, IV benzos, p.r.n. Zofran, banana bags. Deep venous thrombosis prophylaxis. FULL CODE. ROSA ELENA KURTZ DO DR: BEVERLY/keila JOB#: [id number] / [id number]
[2019-05-14 15:00] VITALS: BP 145/80
--- NOTE | 2019-05-14 16:45 | CONS ---
DATE OF CONSULTATION: 05/14/2019 REASON FOR CONSULTATION: Alcoholic pancreatitis. HISTORY OF PRESENT ILLNESS: A 53-year-old male with past medical history significant for alcohol abuse, depression, hypertension, status post ovarian cyst repair, admitted to [facility] with alcohol intoxication and suicidal ideation. States he has been drinking heavily on and off, but more so in the past week, has moderate abdominal pain on admission, which has been improved with his narcotic analgesics also has some localized intentions to hurt himself, and therefore is under 24-hour watch for suicidal ideation. PAST MEDICAL HISTORY: Alcohol abuse, depression, hypertension, status post ovarian cyst repair. ALLERGIES: ASPIRIN. MEDICATIONS: Presently include multivitamin, nicotine patch, clonidine, lorazepam, acetaminophen, Zofran. SOCIAL HISTORY: Drinker and smoker. FAMILY HISTORY: Noncontributory. REVIEW OF SYSTEMS: Per records. PHYSICAL EXAMINATION: GENERAL: Reveals a disheveled male. VITAL SIGNS: Temperature is 98.5, pulse 105, respirations 20, blood pressure 155/90. HEENT: Normocephalic, atraumatic. Head: Pupils and extraocular muscles are not tested. Sclerae anicteric. NECK: Supple. LUNGS: Clear. CARDIOVASCULAR: Reveals an S1, S2 without S3, S4 or appreciable murmur. ABDOMEN: Reveals a soft abdomen, normal bowel sounds, without appreciable hepatosplenomegaly. Epigastric tenderness to deep palpation. EXTREMITIES: Reveals no cyanosis, clubbing or edema. LABORATORY STUDIES: Sodium 144, potassium 4.6, chloride 105, BUN 10, creatinine 0.9, glucose is 116, calcium is 8.9, total bilirubin 0.7, AST 76, ALT of 41, alkaline phosphatase of 98. Total protein 7.6, albumin 4.1, lipase is 709. Hemoglobin 16.7, hematocrit 48.0, white count 5.6, platelet count is 242,000. IMAGING: CT of the abdomen and pelvis reveals multifocal calcific and non-calcific atherosclerotic plaque. There is peripancreatic inflammation without evidence of necrosis. There is diverticulosis, prostatomegaly. IMPRESSION: Acute pancreatitis secondary to alcohol consumption. Recommend medical therapy, alcohol withdrawal and long-term AAA, Absent Alcohol Anonymous and/or abstinence for long-term definitive treatment. DAMION ROMO MD DR: ARVIND/keila JOB#: [id number] / [id number]
[2019-05-14 19:00] VITALS: BP 156/94
[2019-05-14 23:00] VITALS: BP 165/87
[2019-05-14] MEDS: NICOTINE POLACRILEX 2MG GUM PACKAGE of 12. BC PRN (23:03)
[2019-05-15] MEDS: NICOTINE POLACRILEX 2MG GUM PACKAGE of 12. BC PRN ×6 (01:39→21:55)
[2019-05-15 03:00] VITALS: BP 150/91
[2019-05-15 07:00] VITALS: BP 162/84
[2019-05-15] MEDS ORDERED: FLU VAX QS 2019-20 (36MOS+)/PF 0.5 ML SYRINGE. VAX IM ONE (09:00)
[2019-05-15] MEDS: MULTIVIT INFUSN,ADULT 4,VIT K 10 ML, THIAMINE INJ 100 MG, FOLIC ACID INJ 1 MG in IV NOR... IV SCH (10:03)
[2019-05-15] MEDS: IV NORMAL SALINE 1000ML BAG 1,000 ML IV SCH (10:03)
[2019-05-15 11:00] VITALS: BP 166/102
[2019-05-15] MEDS ORDERED: AMLO5TAB10 PO (11:41)
[2019-05-15] MEDS: cloNIDine HCL 0.1 MG TABLET PO PRN ×3 (11:45→18:46)
--- NOTE | 2019-05-15 11:49 | PDOC3 ---
Discharge Summary Visit Information Date of Admission: May 13, 2019 Date of Discharge: May 15, 2019 Final Diagnosis Alcoholism with alcohol abuse and acute alcohol intoxication toxic encephalopathy that caused suicidal ideation - he was very drunk depression. hypertension, not compliant, supposed to take norvasc Problems Medical Problems: (1) Pancreatitis, acute Status: Acute Brief Hospital Course Allergies Allergies Coded Allergies Type Severity Reaction Last Updated Verified aspirin Allergy Intermediate 02/24/18 Yes Vital Signs Vital Signs Date Time Temp Pulse Resp B/P (MAP) Pulse Ox O2 Delivery O2 Flow Rate FiO2 05/15/19 11:00 98.3 87 18 166/102 (123) 97 Room Air 98.3 Lab Results Laboratory Tests Test 05/13/19 19:30 05/13/19 19:40 05/14/19 11:40 05/15/19 04:00 Urine Collection Type Unknown Urine Color Yellow Urine Clarity Clear Urine pH 6.0 Urine Specific [place] 1.010 Urine Protein Negative mg/dL (NEG-TRACE) Urine Glucose (UA) Negative mg/dL (NEG) Urine Ketones (Stick) Negative mg/dL (NEG) Urine Blood Negative (NEG) Urine Nitrite Negative (NEG) Urine Bilirubin Negative (NEG) Urine Urobilinogen Dipstick 0.2 mg/dL (0.2 mg/dL) Urine Leukocyte Esterase Negative (NEG) Urine RBC 0 /HPF (0-2) Urine WBC 5-10 /HPF (0-4) Urine Squamous Epithelial Cells Occ /LPF Urine Bacteria 0 /HPF (0-FEW) Urine Hyaline Casts Few /HPF Urine Mucus Slight /LPF Urine Opiates Screen Neg (NEG) Urine Methadone Screen Neg (NEG) Urine Barbiturates Neg (NEG) Urine Phencyclidine Screen Neg (NEG) Urine Amphetamine/Methamphetamine Neg (NEG) Urine Benzodiazepines Screen Neg (NEG) Urine Cocaine Screen Neg (NEG) Urine Cannabinoids Screen Neg (NEG) Urine Ethyl Alcohol Pos (NEG) White Blood Count 5.6 x10^3/uL (4.0-11.0) Red Blood Count 5.12 x10^6/uL (4.30-5.70) Hemoglobin 16.7 g/dL (13.0-17.5) Hematocrit 48.0 % (39.0-53.0) Mean Corpuscular Volume 94 fL (79-100) Mean Corpuscular Hemoglobin 33 pg (25-35) Mean Corpuscular Hemoglobin Concent 35 g/dL (31-37) Red Cell Distribution Width 15.8 % (11.5-14.5) Platelet Count 242 x10^3/uL (140-400) Neutrophils (%) (Auto) 50 % (31-73) Lymphocytes (%) (Auto) 40 % (24-48) Monocytes (%) (Auto) 9 % (0-9) Eosinophils (%) (Auto) 0 % (0-3) Basophils (%) (Auto) 1 % (0-3) Neutrophils # (Auto) 2.8 x10^3/uL (1.8-7.7) Lymphocytes # (Auto) 2.3 x10^3/uL (1.0-4.8) Monocytes # (Auto) 0.5 x10^3/uL (0.0-1.1) Eosinophils # (Auto) 0.0 x10^3/uL (0.0-0.7) Basophils # (Auto) 0.0 x10^3/uL (0.0-0.2) Sodium Level 144 mmol/L (136-145) Potassium Level 4.0 mmol/L (3.5-5.1) Chloride Level 105 mmol/L (98-107) Carbon Dioxide Level 27 mmol/L (21-32) Anion Gap 12 (6-14) Blood Urea Nitrogen 10 mg/dL (8-26) Creatinine 0.9 mg/dL (0.7-1.3) Estimated GFR (Cockcroft-Gault) 87.6 BUN/Creatinine Ratio 11 (6-20) Glucose Level 116 mg/dL (70-99) Calcium Level 8.9 mg/dL (8.5-10.1) Total Bilirubin 0.7 mg/dL (0.2-1.0) Aspartate Amino Transf (AST/SGOT) 76 U/L (15-37) Alanine Aminotransferase (ALT/SGPT) 41 U/L (16-63) Alkaline Phosphatase 98 U/L (46-116) Total Protein 7.6 g/dL (6.4-8.2) Albumin 4.1 g/dL (3.4-5.0) Albumin/Globulin Ratio 1.2 (1.0-1.7) Lipase 709 U/L (73-393) 257 U/L (73-393) Salicylates Level 4.4 mg/dL (2.8-20.0) Salicylate Last Dose Date Unknown Salicylate Last Dose Time Unknown Acetaminophen Level < 2 mcg/ml (10-30) Acetaminophen Last Dose Date Unknown Acetaminophen Last Dose Time Unknown Ethyl Alcohol Level 388 mg/dL (0-10) Prothrombin Time 12.2 SEC (11.7-14.0) Prothromb Time International Ratio 0.9 (0.8-1.1) Laboratory Tests Test 05/15/19 04:00 Lipase 257 U/L (73-393) Brief Hospital Course Mr. Mccord is a 53 old presented to ER very drunk and depressed, EtOH level 388, was not suicidal when he sobered up. felt OK, no nystagmus or asterxis on DC and denied SI, passed PAT eval. completed alcohol withdrawal protocol, IV fluids, IV benzos, p.r.n. Zofran, banana bags. Deep venous Discharge Information Condition at Discharge: Improved Follow Up: Weeks Disposition/Orders: D/C to Home Scheduled Amlodipine Besylate (Amlodipine Besylate) 5 Mg Tablet, 5 MG PO DAILY for high blood pressure, #30 Prescribed by: BARBARA MURGUIA on 05/15/19 1141 Patient Instructions Patient Instructions > 30 min face to face and exam BARBARA MURGUIA MD May 15, 2019 11:49
[2019-05-15] MEDS ORDERED: amLODIPine BESYLATE 5 MG TABLET PO ONE (12:00)
[2019-05-15 15:00] VITALS: BP 191/99
[2019-05-15] MEDS ORDERED: hydrALAZINE 20 MG/ML VIAL. IVP PRN (18:45)
[2019-05-15 19:00] VITALS: BP 133/86
[2019-05-15 23:00] VITALS: BP 137/83
[2019-05-16] MEDS: NICOTINE POLACRILEX 2MG GUM PACKAGE of 12. BC PRN ×8 (00:36→22:44)
[2019-05-16] MEDS: IV NORMAL SALINE 1000ML BAG 1,000 ML IV SCH ×2 (00:37→13:22)
[2019-05-16 03:00] VITALS: BP 128/79
[2019-05-16 07:57] VITALS: BP 157/85
[2019-05-16] MEDS: MULTIVIT INFUSN,ADULT 4,VIT K 10 ML, THIAMINE INJ 100 MG, FOLIC ACID INJ 1 MG in IV NOR... IV SCH (09:19)
[2019-05-16] MEDS: amLODIPine BESYLATE 5 MG TABLET PO SCH (09:20)
--- NOTE | 2019-05-16 10:42 | PDOC ---
PROGRESS NOTES Chief Complaint Chief Complaint LATE entry, pt seen 05/15, tried to DC, blood pressure running high, 190's Alcoholism with alcohol abuse and acute alcohol intoxication toxic encephalopathy that caused suicidal ideation - he was very drunk depression. hypertension, accelerated, he has not been compliant, supposed to take norvasc History of Present Illness History of Present Illness nausea, no issue Vitals Vitals Vital Signs Date Time Temp Pulse Resp B/P (MAP) Pulse Ox O2 Delivery O2 Flow Rate FiO2 05/16/19 09:20 58 157/85 05/16/19 08:00 Room Air 05/16/19 07:57 97.9 18 97 97.9 Physical Exam General: Alert, Oriented X3, Cooperative, No acute distress Heart: Regular rate, No murmurs Lungs: Clear Abdomen: Normal bowel sounds, Soft Extremities: No clubbing Skin: No rashes, No breakdown Assessment and Plan Assessmemt and Plan Problems Medical Problems: (1) Pancreatitis, acute Status: Acute Comment Review of Relevant I have reviewed the following items juan (where applicable) has been applied. Labs Laboratory Tests Test 05/14/19 11:40 05/15/19 04:00 Prothrombin Time 12.2 SEC (11.7-14.0) Prothromb Time International Ratio 0.9 (0.8-1.1) Lipase 257 U/L (73-393) Medications Current Medications Lorazepam (Ativan Inj) 2 mg STK-MED ONCE .ROUTE ; Start 05/13/19 at 19:37; Stop 05/13/19 at 19:37; Status DC Multivitamins 10 ml/Thiamine HCl 100 mg/Folic Acid 1 mg/Sodium Chloride 1,011.2 ml @ 1,000.088 mls/hr 1X ONCE IV Last administered on 05/13/19at 19:56; Start 05/13/19 at 20:00; Stop 05/13/19 at 21:00; Status DC Lorazepam (Ativan Inj) 2 mg 1X ONCE IVP Last administered on 05/13/19at 19:40; Start 05/13/19 at 20:15; Stop 05/13/19 at 20:19; Status DC Iohexol (Omnipaque 300 Mg/ml) 75 ml 1X ONCE IV Last administered on 05/13/19at 21:30; Start 05/13/19 at 21:30; Stop 05/13/19 at 21:31; Status DC Info (CONTRAST GIVEN -- Rx MONITORING) 1 each PRN DAILY PRN MC SEE COMMENTS; Start 05/13/19 at 21:30; Stop 05/15/19 at 21:29; Status DC Ondansetron HCl (Zofran) 4 mg PRN Q8HRS PRN IV NAUSEA/VOMITING; Start 05/13/19 at 22:15; Stop 05/14/19 at 22:14; Status DC Acetaminophen (Tylenol) 650 mg PRN Q4HRS PRN PO FEVER; Start 05/13/19 at 22:15; Stop 05/14/19 at 22:14; Status DC Multivitamins 10 ml/Thiamine HCl 100 mg/Folic Acid 1 mg/Sodium Chloride 1,011.2 ml @ 100 mls/ hr DAILY IV Last administered on 05/16/19at 09:19; Start 05/14/19 at 09:00; Stop 05/18/19 at 19:07 Lorazepam (Ativan Inj) 2 mg PRN Q1HR PRN IV For CIWA 8-14 Last administered on 05/14/19at 15:47; Start 05/13/19 at 22:15 Clonidine HCl (Catapres) 0.1 mg PRN Q1HR PRN PO SBP > 180 or DBP > 100, MRX3 Last administered on 05/15/19at 18:46; Start 05/13/19 at 22:15 Sodium Chloride 1,000 ml @ 125 mls/hr 1X ONCE IV Last administered on 05/13/19at 22:45; Start 05/13/19 at 22:15; Stop 05/14/19 at 06:14; Status DC Nicotine (Nicoderm Cq 21mg) 1 patch PRN DAILY PRN TD SMOKING CESSATION Last administered on 05/14/19at 00:52; Start 05/14/19 at 00:45; Stop 05/14/19 at 22:43; Status DC Sodium Chloride 1,000 ml @ 75 mls/hr [id number] IV Last administered on 05/16/19at 00:37; Start 05/14/19 at 07:45 Influenza Virus Vaccine Quadrival (Afluria Quad 2019-20 (3yr Up) Syringe) 0.5 ml ONCE ONCE VAX IM Last administered on 05/15/19at 14:09; Start 05/15/19 at 09 :00; Stop 05/15/19 at 09:01; Status DC Nicotine Polacrilex (Nicorette Gum) 1 each PRN Q1HR PRN BC SMOKING CESSATION Last administered on 05/16/19at 10:37; Start 05/14/19 at 22:45 Amlodipine Besylate (Norvasc) 5 mg 1X ONCE PO Last administered on 05/15/19at 14:05; Start 05/15/19 at 12:00; Stop 05/15/19 at 12:01; Status DC Amlodipine Besylate (Norvasc) 5 mg DAILY PO Last administered on 05/16/19at 09:20; Start 05/16/19 at 09:00 Hydralazine HCl (Apresoline Inj) 10 mg PRN Q4HRS PRN IVP ELEVATED BP, SEE COMMENTS; Start 05/15/19 at 18:45 Active Scripts Active Amlodipine Besylate 5 Mg Tablet 5 Mg PO DAILY Vitals/I & O Vital Sign - Last 24 Hours 05/15/19 05/15/19 05/15/19 05/15/19 11:00 11:45 14:05 15:00 Temp 98.3 97.3 98.3 97.3 Pulse 87 87 67 78 Resp 18 18 B/P (MAP) 166/102 (123) 166/102 174/97 191/99 (129) Pulse Ox 97 98 O2 Delivery Room Air Room Air 05/15/19 05/15/19 05/15/19 05/15/19 15:22 18:46 19:00 20:00 Temp 97.3 97.3 Pulse 71 67 68 Resp 20 B/P (MAP) 191/99 162/104 133/86 (102) Pulse Ox 98 O2 Delivery Room Air Room Air 05/15/19 05/16/19 05/16/19 05/16/19 23:00 03:00 07:57 08:00 Temp 99.0 98.6 97.9 99.0 98.6 97.9 Pulse 65 63 58 Resp 20 20 18 B/P (MAP) 137/83 (101) 128/79 (95) 157/85 (109) Pulse Ox 98 98 97 O2 Delivery Room Air Room Air Room Air Room Air 05/16/19 09:20 Pulse 58 B/P (MAP) 157/85 Intake and Output 05/15/19 05/15/19 05/16/19 15:00 23:00 07:00 Intake Total 1840 ml 200 ml 1400 ml Balance 1840 ml 200 ml 1400 ml BARBARA MURGUIA MD May 16, 2019 10:42
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
[2019-05-16 11:59] VITALS: BP 156/93
--- NOTE | 2019-05-16 13:58 | PDOC ---
Subjective: Subjective: pain controlled Objective: Vital Signs: Vital Signs Date Time Temp Pulse Resp B/P (MAP) Pulse Ox O2 Delivery O2 Flow Rate FiO2 05/16/19 11:59 98.1 60 18 156/93 (114) 96 Room Air 98.1 Labs: none today Physical Exam: Physical Exam: HEENT: Normocephalic, atraumatic. Head: Pupils and extraocular muscles are not tested. Sclerae anicteric. NECK: Supple. LUNGS: Clear. CARDIOVASCULAR: Reveals an S1, S2 without S3, S4 or appreciable murmur. ABDOMEN: Reveals a soft abdomen, normal bowel sounds, without appreciable hepatosplenomegaly. Epigastric tenderness to deep palpation. EXTREMITIES: Reveals no cyanosis, clubbing or edema. Assessment & Plan: Assessment : 1) Acute pancreatitis secondary to alcohol consumption. Plan: Recommend medical therapy, alcohol withdrawal and long-term AAA, Absent Alcohol Anonymous and/or abstinence for long-term definitive treatment. DHAVAL CORREIA MD May 16, 2019 13:58
[2019-05-16 14:43] VITALS: BP 154/78
[2019-05-16 19:00] VITALS: BP 146/93
[2019-05-16 23:00] VITALS: BP 177/111
[2019-05-16] MEDS: cloNIDine HCL 0.1 MG TABLET PO PRN (23:50)
[2019-05-17 00:40] VITALS: BP 151/96
[2019-05-17 03:00] VITALS: BP 141/84
[2019-05-17 07:00] VITALS: BP 139/103
[2019-05-17] MEDS: NICOTINE POLACRILEX 2MG GUM PACKAGE of 12. BC PRN ×4 (09:05→20:17)
[2019-05-17] MEDS: amLODIPine BESYLATE 5 MG TABLET PO SCH (09:05)
[2019-05-17] MEDS: MULTIVIT INFUSN,ADULT 4,VIT K 10 ML, THIAMINE INJ 100 MG, FOLIC ACID INJ 1 MG in IV NOR... IV SCH (09:11)
--- NOTE | 2019-05-17 10:03 | PDOC3 ---
Discharge Summary Visit Information Date of Admission: May 13, 2019 Date of Discharge: May 17, 2019 Admitting Diagnosis Comment: Alcoholism with alcohol abuse and acute alcohol intoxication toxic encephalopathy that caused suicidal ideation - he was very drunk depression. hypertension, not compliant, supposed to take norvasc Final Diagnosis Problems Medical Problems: (1) Pancreatitis, acute Status: Acute Brief Hospital Course Allergies Allergies Coded Allergies Type Severity Reaction Last Updated Verified aspirin Allergy Intermediate 02/24/18 Yes Vital Signs Vital Signs Date Time Temp Pulse Resp B/P (MAP) Pulse Ox O2 Delivery O2 Flow Rate FiO2 05/17/19 09:05 91 139/103 05/17/19 07:00 97.8 18 98 Room Air 97.8 Brief Hospital Course Mr. Mccord is a 53 old [sex] alcoholic, Was dcd 2 days ago by colleague but was the weekend, pt homeless, needs 2 unavoidable days to wait for SW friday, MEdicallly ready to dc today to [facility] etc what have u ALl MAR done by DR Murguia Discharge Information Condition at Discharge: Improved, Stable Disposition/Orders: D/C to Home Scheduled Amlodipine Besylate (Amlodipine Besylate) 5 Mg Tablet, 5 MG PO DAILY for high blood pressure, #30 Prescribed by: BARBARA MURGUIA on 05/15/19 1141 BEA ALMEIDA MD May 17, 2019 10:03
[2019-05-17 10:41] VITALS: BP 133/87
--- NOTE | 2019-05-17 11:56 | NUR ---
SW following. Chart reviewed, discussed with RN. Pt apparently wasn't able to remember his address so was unable to discharge over the weekend. SW met with pt, pt was able to get his address from a friend. Pt had spoken with [facility] to discuss tx options. Pt reported to SW he cannot do inpatient alcohol tx because of his job, pt would be more willing to do outpatient treatment. SW spoke with [facility], they are going to speak with pt over the phone to determine options and then if pt is needing another [facility] assessment for the options available, Princess Chi from [facility] will do the assessment with pt at 1500 today at [facility]. RN notified. Plan to discharge after [facility] assessment. FRANSISCO will continue to follow.
--- NOTE | 2019-05-17 12:50 | PDOC ---
Provider Note Provider Note asleep i did not awaken HAs been dcd by DR Singh over weekend but :"homeless" [facility] team to come see pt later 3 PM Abhinav Castillo RN and SW Rx should be in chart as done by BEA Wen MD May 17, 2019 12:50
[2019-05-17] MEDS ORDERED: CHLO1CAP PO (12:52)
[2019-05-17] MEDS ORDERED: MULT-245 PO (12:52)
[2019-05-17] MEDS ORDERED: THIA100T22 PO (12:52)
--- NOTE | 2019-05-17 12:53 | PDOC ---
Subjective: Subjective: Denies pain, tolerating PO. Objective: Vital Signs: Vital Signs Date Time Temp Pulse Resp B/P (MAP) Pulse Ox O2 Delivery O2 Flow Rate FiO2 05/17/19 10:41 97.7 81 18 133/87 (102) 97 Room Air 97.7 PE: GEN: NAD LUNGS: CTAB HEART: RRR ABD: S/ND/NT NEURO/PSYCH: A & O 3 A/P: Alcoholic pancreatitis -- DC per primary. Hemodynamically unstable?: No Is patient in severe pain?: No Is NPO status required?: No YOSELIN MCCABE May 17, 2019 12:53
--- NOTE | 2019-05-17 13:00 | NUR ---
[facility] THEATRICAL PERFORMER HERE AND VISITING WITH PATIENT AT THIS TIME.
[2019-05-17 14:50] VITALS: BP 144/80
--- NOTE | 2019-05-17 15:07 | NUR ---
SW following. Jacob MEDELLIN came to meet with Vinny HOYT, pt declined to sign [facility] assessment. Pt will discharge home with self care. No further SW needs.
--- NOTE | 2019-05-17 22:10 | NUR ---
Cab finally here. PHOTOVOLTAIC FABRICATION TECHNICIAN took pt down by wheelchair with all belongings. All questions answered.
== END 2019-05-17 22:10 | disposition home or self-care (01) | DRG 438 ==
LOC: ER 19:16 → 5 SOUTH 21:00
PROVIDERS: ADMIT Internal Medicine; ATTEND Internal Medicine
DX: K85.20 Alcohol induced acute pancreatitis without necrosis or infection (principal); G92 Toxic encephalopathy; F10.288 Alcohol dependence with other alcohol-induced disorder; R45.851 Suicidal ideations; F10.229 Alcohol dependence with intoxication, unspecified; F17.200 Nicotine dependence, unspecified, uncomplicated; F32.9 Major depressive disorder, single episode, unspecified; I10 Essential (primary) hypertension; Y90.8 Blood alcohol level of 240 mg/100 ml or more; Z59.0 Homelessness; Z82.49 Family history of ischemic heart disease and other diseases of the circulatory system; Z91.19 Patient's noncompliance with other medical treatment and regimen; F41.9 Anxiety disorder, unspecified; Z88.8 Allergy status to other drugs, medicaments and biological substances; Z79.899 Other long term (current) drug therapy
CPT/HCPCS: 36415; 74177; 80053; 80307; 80329; 81001; 83690; 85025; 85610; 90471; 90686; 96365; 96366; 96375; G0480; J0360; J2060; J7030; Q9967; 99285-25; G0378

== ENCOUNTER 2019-09-14 05:02 | Emergency (ER) | payer SELFPAY ==
[~2019-09-14] VITALS: Ht 167.6 cm; Wt 71.0 kg
[~2019-09-14 05:02] MED LIST changes: +AMLO5TAB10 PO; +CHLO1CAP PO; +MULT-245 PO; +THIA100T22 PO
--- NOTE | 2019-09-14 05:20 | PHYS DOC ---
Past Medical History Past Medical History: Alcoholism, Depression, Hypertension Past Surgical History: Other Additional Past Surgical Histo: Hernia repair, cyst removal Smoking Status: Current Every Day Smoker Alcohol Use: Heavy Drug Use: None General Adult EDM: Chief Complaint: SUICDAL IDEATION HPI: HPI: Patient is a 54 year old male who presents with report of suicidal ideation. Patient states that he's been feeling depressed for the last few months but feelings of depression and getting much worse. Patient states that he has lost everything and all that he has now is what he is carrying with him. Patient states that he has had thoughts of just cutting his jugular. Patient feels completely helpless at this time. He denies any homicidal ideations.[] Review of Systems: Review of Systems: Constitutional: Denies fever or chills. [] Respiratory: Denies cough or shortness of breath. [] Cardiovascular: Denies chest pain or edema. [] GI: Denies abdominal pain, nausea, vomiting or diarrhea. [] Neurologic: Denies headache, focal weakness or sensory changes. [] Psychiatric: Positive depression and suicidal ideation. [] A full 10 point review of systems has been reviewed and is otherwise negative. Heart Score: Risk Factors: Risk Factors: DM, Current or recent (<one month) smoker, HTN, HLP, family history of CAD, obesity. Risk Scores: Score 0 - 3: 2.5% MACE over next 6 weeks - Discharge Home Score 4 - 6: 20.3% MACE over next 6 weeks - Admit for Clinical Observation Score 7 - 10: 72.7% MACE over next 6 weeks - Early Invasive Strategies Current Medications: Current Medications Medications (Trade) Dose Ordered Sig/[facility] Start Time Stop Time Status Last Admin Dose Admin Nicotine (Nicoderm Cq 14mg) 1 patch 1X STAT 09/14/19 05:15 09/14/19 05:16 UNV Allergies: Allergies: Allergies Coded Allergies Type Severity Reaction Last Updated Verified aspirin Allergy Intermediate 02/24/18 Yes Physical Exam: PE: Constitutional: Well developed, well nourished, no acute distress, non-toxic appearance. [] HENT: Normocephalic, atraumatic, bilateral external ears normal, oropharynx moist, no oral exudates, nose normal. [] Eyes: PERRLA, EOMI, conjunctiva normal, no discharge. [] Neck: Normal range of motion, no tenderness, supple. [] Cardiovascular: Regular rate and rhythm[] Lungs & Thorax: Bilateral breath sounds clear to auscultation [] Abdomen: Bowel sounds normal, soft, no tenderness. [] Skin: Warm, dry, no erythema, no rash. [] Extremities: No tenderness, no cyanosis, no clubbing, ROM intact, no edema. [] Neurologic: Alert and oriented X 3, no focal deficits noted. [] Psychologic: Flattened affect with depressed mood. [] Current Patient Data: Vital Signs: Vital Signs Date Time Temp Pulse Resp B/P (MAP) Pulse Ox O2 Delivery O2 Flow Rate FiO2 09/14/19 05:06 98.0 99 18 160/93 (115) 99 Room Air 98.0 EKG: EKG: [] Radiology/Procedures: Radiology/Procedures: [] Course & Med Decision Making: Course & Med Decision Making Pertinent Labs and Imaging studies reviewed. (See chart for details) [] Dragon Disclaimer: Dragon Disclaimer: This electronic medical record was generated, in whole or in part, using a voice recognition dictation system. Departure Departure Impression: Primary Impression: Suicidal ideation Referrals: NO PCP (PCP) GUSTABO WILKS Jr. DO Sep 14, 2019 05:20
[2019-09-14 05:23] LABS: BASO # 0.1 x10^3/uL (0.0-0.2); BASO % 1 % (0-3); EOS # 0.2 x10^3/uL (0.0-0.7); EOS % 1 % (0-3); HEMATOCRIT 44.5 % (39.0-53.0); HEMOGLOBIN 15.2 g/dL (13.0-17.5); LYMPH % 19 % (24-48); MEAN CORPUSCULAR HEMOGLOBIN 32 pg (25-35); MEAN CORPUSCULAR HGB CONC 34 g/dL (31-37); MEAN CORPUSCULAR VOLUME 93 fL (79-100); MONO # 0.9 x10^3/uL (0.0-1.1); MONO % 8 % (0-9); NEUT # 7.7 x10^3/uL (1.8-7.7); NEUT % 72 % (31-73); PLATELET COUNT 331 x10^3/uL (140-400); RED BLOOD COUNT 4.81 x10^6/uL (4.30-5.70); RED CELL DISTRIBUTION WIDTH 14.2 % (11.5-14.5); WHITE BLOOD COUNT 10.8 x10^3/uL (4.0-11.0)
[2019-09-14 05:29] LABS: BILIRUBIN,URINE NEGATIVE (NEG); CLARITY,URINE CLEAR; COLOR,URINE YELLOW; NITRITE,URINE NEGATIVE (NEG); PH,URINE 6.5 (<5.0-8.0); PROTEIN,URINE NEGATIVE (NEG-TRACE)
[2019-09-14 05:30] LABS: CALCIUM 9.4 mg/dL (8.5-10.1); CREATININE 0.8 mg/dL (0.7-1.3); POTASSIUM 3.7 mmol/L (3.5-5.1)
[2019-09-14 05:36] LABS: ALBUMIN 4.6 g/dL (3.4-5.0); ALBUMIN/GLOBULIN RATIO 1.3 (1.0-1.7); TOTAL BILIRUBIN 0.6 mg/dL (0.2-1.0); TOTAL PROTEIN 8.1 g/dL (6.4-8.2)
[2019-09-14 05:37] LABS: BARBITURATES NEG (NEG); BENZODIAZEPINES NEG (NEG); CANNABINOIDS NEG (NEG); COCAINE NEG (NEG); METHADONE NEG (NEG); OPIATES NEG (NEG); PHENCYCLIDINE NEG (NEG)
[2019-09-14 05:39] LABS: AMPHETAMINE/METHAMPHETAMINE NEG (NEG); BACTERIA,URINE 0 /HPF (0-FEW); RBC,URINE RARE /HPF (0-2); SQUAMOUS EPITHELIAL CELL,UR OCC /LPF; WBC,URINE RARE /HPF (0-4)
[2019-09-14] MEDS ORDERED: NICOTINE POLACRILEX 2MG GUM PACKAGE of 12. BC PRN (05:45)
[2019-09-14] MEDS ORDERED: NICOTINE 14MG PATCH. TD ONE (06:00)
[2019-09-14 07:00] VITALS: BP 120/59
== END 2019-09-14 09:30 ==
LOC: ER 05:02
DX: F32.9 Major depressive disorder, single episode, unspecified (principal); R45.851 Suicidal ideations; I10 Essential (primary) hypertension; F17.200 Nicotine dependence, unspecified, uncomplicated; F10.10 Alcohol abuse, uncomplicated; Z98.890 Other specified postprocedural states; Z88.6 Allergy status to analgesic agent
CPT/HCPCS: 36415; 80053; 80307; 81001; 85025; 99285; G0480

== ENCOUNTER 2019-12-15 01:25 | Inpatient (IN) | payer SELFPAY ==
[~2019-12-15] VITALS: Ht 162.6 cm; Wt 75.0 kg
--- NOTE | 2019-12-15 01:54 | PHYS DOC ---
Past Medical History Past Medical History: Alcoholism, Depression, Hypertension Past Surgical History: Other Additional Past Surgical Histo: Hernia repair, cyst removal Smoking Status: Current Every Day Smoker Alcohol Use: Heavy Drug Use: None General Adult EDM: Chief Complaint: COUGH HPI: HPI: Patient is a 54-year-old male presents with a chief complaint of fever muscle aches headache that started on . Patient states today he started to feel shortness of breath and had an associated cough without sputum production. On arrival patient is febrile. His heart rate is within normal limits. He is not requiring any supplemental oxygen his oxygen saturation 97% on room air. Patient was evaluated earlier this week at [facility] had a COVID test that is pending. Review of Systems: Review of Systems: Denies denies chills. []positive fever Eyes: Denies change in visual acuity. [] HENT: Denies nasal congestion or sore throat. [] Respiratory: positive cough positive shortness of breath Cardiovascular: Denies chest pain or edema. [] GI: Denies abdominal pain, nausea, vomiting, bloody stools or diarrhea. [] : Denies dysuria. [] Musculoskeletal: Denies back pain or joint pain. [positive muscle aches] Integument: Denies rash. [] Neurologic: Denies headache, focal weakness or sensory changes. [] Endocrine: Denies polyuria or polydipsia. [] Lymphatic: Denies swollen glands. [] Psychiatric: Denies depression or anxiety. [] Heart Score: Risk Factors: Risk Factors: DM, Current or recent (<one month) smoker, HTN, HLP, family history of CAD, obesity. Risk Scores: Score 0 - 3: 2.5% MACE over next 6 weeks - Discharge Home Score 4 - 6: 20.3% MACE over next 6 weeks - Admit for Clinical Observation Score 7 - 10: 72.7% MACE over next 6 weeks - Early Invasive Strategies Current Medications: Current Medications Medications (Trade) Dose Ordered Sig/[facility] Start Time Stop Time Status Last Admin Dose Admin Ketorolac Tromethamine (Toradol 30mg Vial) 30 mg 1X ONCE 12/15/19 02:00 12/15/19 02:01 UNV Sodium Chloride 1,000 ml @ 1,000 mls/hr 1X ONCE 12/15/19 02:00 12/15/19 02:59 UNV Allergies: Allergies: Allergies Coded Allergies Type Severity Reaction Last Updated Verified aspirin Allergy Intermediate 02/24/18 Yes Physical Exam: PE: Constitutional: Well developed, well nourished, no acute distress, non-toxic appearance. [] HENT: Normocephalic, atraumatic, bilateral external ears normal, oropharynx moist, no oral exudates, nose normal. [] Eyes: PERRLA, EOMI, conjunctiva normal, no discharge. [] Neck: Normal range of motion, no tenderness, supple, no stridor. [] Cardiovascular:Heart rate regular rhythm, no murmur [] Lungs & Thorax: Bilateral breath sounds clear to auscultation [] Abdomen: Bowel sounds normal, soft, no tenderness, no masses, no pulsatile masses. [] Skin: Warm, dry, no erythema, no rash. [] Back: No tenderness, no CVA tenderness. [] Extremities: No tenderness, no cyanosis, no clubbing, ROM intact, no edema. [] Neurologic: Alert and oriented X 3, normal motor function, normal sensory function, no focal deficits noted. [] Psychologic: Affect normal, judgement normal, mood normal. [] EKG: EKhr Heart rate [address] elevation no ST depression no acute WA [] Radiology/Procedures: Radiology/Procedures: [] Impression: An AP erect portable digital radiograph of the chest was obtained. The cardiac silhouette is mildly enlarged. The thoracic aorta is tortuous. Atherosclerotic calcification of the thoracic aorta is seen. Blunting of the left costophrenic angle is seen consistent with a very small left pleural effusion. Perihilar infiltrates are seen involving both lungs lungs which likely reflect pulmonary edema from CHF. No pneumothorax is noted. Degenerative changes are seen involving the thoracic spine and both shoulders. IMPRESSION: Bilateral perihilar infiltrates are seen which likely reflect pulmonary edema from CHF. Course & Med Decision Making: Course & Med Decision Making Pertinent Labs and Imaging studies reviewed. (See chart for details) [] Dragon Disclaimer: Dragon Disclaimer: This electronic medical record was generated, in whole or in part, using a voice recognition dictation system. Departure Departure Impression: Primary Impression: Person under investigation for COVID-19 Additional Impression: Fever Disposition: ADMITTED INPATIENT Condition: STABLE Referrals: NO PCP (PCP) Justicifation of Admission Dx: Justifications for Admission: Justification of Admission Dx: Yes Respiratory Failure: Non-Cardiac Pulm Edema NIMO JANG I DO Dec 15, 2019 01:54
[2019-12-15] MEDS ORDERED: ONDANSETRON PF 4 MG/2 ML VIAL. IVP ONE (02:00)
[2019-12-15] MEDS ORDERED: IV NORMAL SALINE 1000ML BAG 1,000 ML IV ONE (02:00)
[2019-12-15] MEDS ORDERED: ACETAMINOPHEN 325 MG TABLET. PO ONE (02:00)
[2019-12-15] MEDS ORDERED: KETOROLAC 30 MG/ML VIAL. IVP ONE (02:00)
[2019-12-15 02:03] LABS: BASO % 0 % (0-3); EOS % 0 % (0-3); HEMATOCRIT 36.2 % (39.0-53.0); HEMOGLOBIN 12.9 g/dL (13.0-17.5); LYMPH # 1.1 x10^3/uL (1.0-4.8); LYMPH % 11 % (24-48); MEAN CORPUSCULAR HEMOGLOBIN 33 pg (25-35); MEAN CORPUSCULAR HGB CONC 36 g/dL (31-37); MEAN CORPUSCULAR VOLUME 92 fL (79-100); MONO # 0.5 x10^3/uL (0.0-1.1); MONO % 5 % (0-9); NEUT # 9.1 x10^3/uL (1.8-7.7); NEUT % 84 % (31-73); PLATELET COUNT 286 x10^3/uL (140-400); RED BLOOD COUNT 3.92 x10^6/uL (4.30-5.70); RED CELL DISTRIBUTION WIDTH 17.6 % (11.5-14.5); WHITE BLOOD COUNT 10.9 x10^3/uL (4.0-11.0)
[2019-12-15 02:10] LABS: CALCIUM 8.3 mg/dL (8.5-10.1); GFR 77.3; POTASSIUM 3.7 mmol/L (3.5-5.1)
[2019-12-15 02:15] LABS: ALBUMIN 2.6 g/dL (3.4-5.0); ALBUMIN/GLOBULIN RATIO 0.5 (1.0-1.7); TOTAL BILIRUBIN 0.4 mg/dL (0.2-1.0); TOTAL PROTEIN 7.5 g/dL (6.4-8.2)
--- NOTE | 2019-12-15 02:40 | RAD ---
AP portable chest radiograph 12/15/2019 Clinical History: Shortness of breath. An AP erect portable digital radiograph of the chest was obtained. The cardiac silhouette is mildly enlarged. The thoracic aorta is tortuous. Atherosclerotic calcification of the thoracic aorta is seen. Blunting of the left costophrenic angle is seen consistent with a very small left pleural effusion. Perihilar infiltrates are seen involving both lungs lungs which likely reflect pulmonary edema from CHF. No pneumothorax is noted. Degenerative changes are seen involving the thoracic spine and both shoulders. IMPRESSION: Bilateral perihilar infiltrates are seen which likely reflect pulmonary edema from CHF. Electronically signed by: Abdoulaye Kelly MD (12/15/2019 2:38 AM) [id number]
[2019-12-15] MEDS ORDERED: AZITHRMYCN 500MG IVPB FOR OMNI 250 ML IV ONE (03:00)
[2019-12-15] MEDS ORDERED: MORPHINE SULFATE 2 MG/ML VIAL. IV PRN (03:00)
[2019-12-15] MEDS ORDERED: ONDANSETRON PF 4 MG/2 ML VIAL. IV PRN (03:00)
[2019-12-15] MEDS ORDERED: cefTRIAXone IV Push 1 GM VIAL. IVP ONE (03:00)
--- NOTE | 2019-12-15 04:46 | EKG ---
[facility] [address] [place] [address] Test Date: 2019-12-15 Test Time: 01:34:44 Pat Name: YONI GREEN Department: Room: [facility] Gender: M Overnight Babysitter: : 1965 Requested By: NIMO JANG Order Number: [id number] Reading MD: Measurements Intervals [place] Rate: 95 P: 36 ID: [id number] QRS: 55 QRSD: 88 T: 24 QT: 308 QTc: 390 Interpretive Statements SINUS RHYTHM NORMAL ECG RI6.01 No previous ECG available for comparison
[2019-12-15 05:00] VITALS: BP 128/84
--- NOTE | 2019-12-15 05:07 | NUR ---
patient arrived to unit at approx 0450 accompanied by ED nurse. pt on 2 L NC resting comfortably. VS stable. Assessment complete. Call light in reach, oriented pt to unit. reminded pt to call for assistance before ambulating. Pt currently living at [facility]. Has no emergency contact. No Tele leads available, unable to hardwire patient to monitor. Notified nursing preparation supervisor canning and nurse in flight refueling manager. Will continue to monitor patient.
[2019-12-15 07:15] VITALS: BP 153/83
--- NOTE | 2019-12-15 08:56 | PDOC1 ---
History and Physical Date of Admission: Date of Admission DATE: 12/15/19 TIME: 08:55 History of Present Illness: HPI: 54-year-old male presents with a chief complaint of fever muscle aches headache that started on . Patient states today he started to feel shortness of breath and had an associated cough without sputum production that has been constant and increasing in intervals. There are no exacerbating or alleviating factors. Patient denies any chest pain, fevers, abdominal pain, diarrhea. Patient states he was tested for COVID at [facility] however he has not received results at this time. Past Medical/Surgical History: PMH/PSH: Past Medical History: Alcoholism, Depression, Hypertension Past Surgical History: Other Additional Past Surgical Histo: Hernia repair, cyst removal Allergies: Allergies: Coded Allergies: aspirin (Verified Allergy, Intermediate, 02/24/18) Family History: Family History: None Social History: Social History: Smoking Status: Current Every Day Smoker Alcohol Use: Heavy Drug Use: None Current Medications: Current Medications Current Medications Ketorolac Tromethamine (Toradol 30mg Vial) 30 mg 1X ONCE IVP Last administered on 12/15/19at 02:03; Start 12/15/19 at 02:00; Stop 12/15/19 at 02:02; Status DC Sodium Chloride 1,000 ml @ 1,000 mls/hr 1X ONCE IV Last administered on 12/15/19at 02:00; Start 12/15/19 at 02:00; Stop 12/15/19 at 02:59; Status DC Acetaminophen (Tylenol) 650 mg 1X ONCE PO Last administered on 12/15/19at 02:02; Start 12/15/19 at 02:00; Stop 12/15/19 at 02:02; Status DC Ondansetron HCl (Zofran) 4 mg 1X ONCE IVP Last administered on 12/15/19at 02:03; Start 12/15/19 at 02:00; Stop 12/15/19 at 02:02; Status DC Ceftriaxone Sodium (Rocephin) 1 gm 1X ONCE IVP Last administered on 12/15/19at 03:17; Start 12/15/19 at 03:00; Stop 12/15/19 at 03:01; Status DC Azithromycin 250 ml @ 250 mls/hr 1X ONCE IV Last administered on 12/15/19at 03:17; Start 12/15/19 at 03:00; Stop 12/15/19 at 03:59; Status DC Ondansetron HCl (Zofran) 4 mg PRN Q8HRS PRN IV NAUSEA/VOMITING; Start 12/15/19 at 03:00; Stop 12/16/19 at 02:59 Morphine Sulfate (Morphine Sulfate) 2 mg PRN Q2HR PRN IV PAIN; Start 12/15/19 at 03:00; Stop 12/16/19 at 02:59 Acetaminophen (Tylenol) 650 mg PRN Q4HRS PRN PO FEVER > 100.3'F; Start 12/15/19 at 03:00; Stop 12/16/19 at 02:59 Active Scripts Active Librax Capsule (Chlordiazepoxide/Clidinium Br) 1 Each Capsule 1 Cap PO TID Vitamin B-1 (Thiamine Mononitrate) 100 Mg Tablet 1 Tab PO DAILY 30 Days Multi Vitamin Daily (Multivitamin) 1 Each Tablet 1 Tab PO DAILY 30 Days Amlodipine Besylate 5 Mg Tablet 5 Mg PO DAILY ROS: Review of Systems Review of System REVIEW OF SYSTEMS: GENERAL: Denies weakness SKIN: No bruising, hair changes or rashes. EYES: No blurred, double or loss of vision. NOSE AND THROAT: No history of nosebleeds, hoarseness or sore throat. HEART: No history of palpitations, chest pain or shortness of breath on exertion. LUNGS: Denies cough, hemoptysis, wheezing or shortness of breath. GASTROINTESTINAL: Denies changes in appetite, nausea, vomiting, diarrhea or constipation. GENITOURINARY: No history of frequency, urgency, hesitancy or nocturia. NEUROLOGIC: Denies history of numbness, tingling, or tremor. PSYCHIATRIC: No history of panic, anxiety or depression. ENDOCRINE: No history of heat or cold intolerance, polyuria or polydipsia. EXTREMITIES: Denies joint pain, pain on walking or stiffness. Physical Exam: Vital Signs: Vital Signs Date Time Temp Pulse Resp B/P (MAP) Pulse Ox O2 Delivery O2 Flow Rate FiO2 12/15/19 05:41 Nasal Cannula 2.0 12/15/19 05:00 69 18 128/84 (99) 98 12/15/19 03:20 101.0 101.0 Physcial Exam: GEN: No apparent distress. Alert and oriented HEENT: Normal cephalic, atraumatic, external auditory canals are patent EYES: Extraocular muscles are intact, pupil are equally round and reactive to light and accommodation MUSCULOSKELETAL: Well developed , well nourished, good range of motion ENDOCRINE: No thyromegaly was palpated LYMPHATICS: No cervical chain or axillary nodes were noted HEMATOPOIETIC: No bruising NECK: Supple, no JVD, no thyromegaly was noted LUNGS: Bilateral crackles HEART: RRR, S1, S2 present. Peripheral pulses intact, no obvious murmurs noted ABDOMEN: Soft, nontender. Positive bowel sounds, no organomegaly, normal bowel sounds EXTREMITIES: Without clubbing, cyanosis, or edema. Pedal pulses intact. Negative Homans sign NEUROLOGIC: Normal speech and tone. A&O x 3, moves all extremities, no obvious focal deficits PSYCHIATRIC: Normal affect, normal mood. Stable SKIN: No ulcerations or rashes, good skin turgor, no jaundice VASCULAR: Good capillary refill, neurovascular bundle appears to be intact Labs: Labs: Laboratory Tests Test 12/15/19 01:50 12/15/19 05:35 White Blood Count 10.9 x10^3/uL (4.0-11.0) Red Blood Count 3.92 x10^6/uL (4.30-5.70) Hemoglobin 12.9 g/dL (13.0-17.5) Hematocrit 36.2 % (39.0-53.0) Mean Corpuscular Volume 92 fL (79-100) Mean Corpuscular Hemoglobin 33 pg (25-35) Mean Corpuscular Hemoglobin Concent 36 g/dL (31-37) Red Cell Distribution Width 17.6 % (11.5-14.5) Platelet Count 286 x10^3/uL (140-400) Neutrophils (%) (Auto) 84 % (31-73) Lymphocytes (%) (Auto) 11 % (24-48) Monocytes (%) (Auto) 5 % (0-9) Eosinophils (%) (Auto) 0 % (0-3) Basophils (%) (Auto) 0 % (0-3) Neutrophils # (Auto) 9.1 x10^3/uL (1.8-7.7) Lymphocytes # (Auto) 1.1 x10^3/uL (1.0-4.8) Monocytes # (Auto) 0.5 x10^3/uL (0.0-1.1) Eosinophils # (Auto) 0.0 x10^3/uL (0.0-0.7) Basophils # (Auto) 0.0 x10^3/uL (0.0-0.2) Sodium Level 127 mmol/L (136-145) Potassium Level 3.7 mmol/L (3.5-5.1) Chloride Level 92 mmol/L (98-107) Carbon Dioxide Level 26 mmol/L (21-32) Anion Gap 9 (6-14) Blood Urea Nitrogen 12 mg/dL (8-26) Creatinine 1.0 mg/dL (0.7-1.3) Estimated GFR (Cockcroft-Gault) 77.3 BUN/Creatinine Ratio 12 (6-20) Glucose Level 137 mg/dL (70-99) Calcium Level 8.3 mg/dL (8.5-10.1) Total Bilirubin 0.4 mg/dL (0.2-1.0) Aspartate Amino Transf (AST/SGOT) 34 U/L (15-37) Alanine Aminotransferase (ALT/SGPT) 47 U/L (16-63) Alkaline Phosphatase 180 U/L (46-116) DC-Erd-A-Type Natriuretic Peptide 435 pg/mL (0-124) Total Protein 7.5 g/dL (6.4-8.2) Albumin 2.6 g/dL (3.4-5.0) Albumin/Globulin Ratio 0.5 (1.0-1.7) Troponin I Quantitative < 0.017 ng/mL (0.000-0.055) Laboratory Tests Test 12/15/19 01:50 12/15/19 05:35 White Blood Count 10.9 x10^3/uL (4.0-11.0) Red Blood Count 3.92 x10^6/uL (4.30-5.70) Hemoglobin 12.9 g/dL (13.0-17.5) Hematocrit 36.2 % (39.0-53.0) Mean Corpuscular Volume 92 fL (79-100) Mean Corpuscular Hemoglobin 33 pg (25-35) Mean Corpuscular Hemoglobin Concent 36 g/dL (31-37) Red Cell Distribution Width 17.6 % (11.5-14.5) Platelet Count 286 x10^3/uL (140-400) Neutrophils (%) (Auto) 84 % (31-73) Lymphocytes (%) (Auto) 11 % (24-48) Monocytes (%) (Auto) 5 % (0-9) Eosinophils (%) (Auto) 0 % (0-3) Basophils (%) (Auto) 0 % (0-3) Neutrophils # (Auto) 9.1 x10^3/uL (1.8-7.7) Lymphocytes # (Auto) 1.1 x10^3/uL (1.0-4.8) Monocytes # (Auto) 0.5 x10^3/uL (0.0-1.1) Eosinophils # (Auto) 0.0 x10^3/uL (0.0-0.7) Basophils # (Auto) 0.0 x10^3/uL (0.0-0.2) Sodium Level 127 mmol/L (136-145) Potassium Level 3.7 mmol/L (3.5-5.1) Chloride Level 92 mmol/L (98-107) Carbon Dioxide Level 26 mmol/L (21-32) Anion Gap 9 (6-14) Blood Urea Nitrogen 12 mg/dL (8-26) Creatinine 1.0 mg/dL (0.7-1.3) Estimated GFR (Cockcroft-Gault) 77.3 BUN/Creatinine Ratio 12 (6-20) Glucose Level 137 mg/dL (70-99) Calcium Level 8.3 mg/dL (8.5-10.1) Total Bilirubin 0.4 mg/dL (0.2-1.0) Aspartate Amino Transf (AST/SGOT) 34 U/L (15-37) Alanine Aminotransferase (ALT/SGPT) 47 U/L (16-63) Alkaline Phosphatase 180 U/L (46-116) RH-Afl-N-Type Natriuretic Peptide 435 pg/mL (0-124) Total Protein 7.5 g/dL (6.4-8.2) Albumin 2.6 g/dL (3.4-5.0) Albumin/Globulin Ratio 0.5 (1.0-1.7) Troponin I Quantitative < 0.017 ng/mL (0.000-0.055) Assessment/Plan Assessment/Plan Acute respiratory failure secondary to hypoxia Investigation for COVID Acute hyponatremia History of alcohol use Depression Hypertension Admit to telemetry monitoring unit Continue empiric antibiotics Follow-up blood cultures Will consider ID consultation if patient continues to fever Pending COVID results We will continue NS at 100 for hyponatremia Pending serum and urine osmolality and urine sodium Patient has Librium as needed for potential EtOH withdrawal Lovenox for DVT prophylaxis Regular diet Full code Discussed with RN Justicifation of Admission Dx: Justifications for Admission: Justification of Admission Dx: Yes Respiratory Failure: Non-Cardiac Pulm Edema GIOVANNI DUNN MD Dec 15, 2019 08:56
[2019-12-15] MEDS: CHLORDIAZEPOXIDE/CLIDINIUM 5MG/2.5MG CAPSULE. PO SCH ×3 (09:00→20:35)
[2019-12-15] MEDS: ACETAMINOPHEN 325 MG TABLET. PO PRN ×2 (10:13→16:45)
[2019-12-15] MEDS: IV NORMAL SALINE 1000ML BAG 1,000 ML IV SCH ×2 (10:13→20:35)
[2019-12-15] MEDS: THIAMINE 100 MG TABLET. PO SCH (10:13)
[2019-12-15 11:15] VITALS: BP 122/76
[2019-12-15 15:00] VITALS: BP 135/74
--- NOTE | 2019-12-15 16:35 | NUR ---
SW following. Reviewed chart and spoke with RN. Pt from home. Pt self-pay and being following by Lauren; coordinated care with Megan. Cardoso on 2l 02 and IV Morphine. SW to follow. Addendum: 12/15/19 at 1651 by ELBA MOODY Pt is actually homeless and living at the [facility] per further review. SW to provide resources as needed for assistance with medications and transportation.
[2019-12-15] MEDS ORDERED: ENOXAPARIN 40 MG/0.4 ML SYRINGE. SQ SCH (18:00)
[2019-12-15 18:38] LABS: CALCIUM 7.2 mg/dL (8.5-10.1); CREATININE 0.8 mg/dL (0.7-1.3); POTASSIUM 3.7 mmol/L (3.5-5.1)
[2019-12-15 19:00] VITALS: BP 136/72
[2019-12-15] MEDS: AZITHROMYCIN 500 MG in IV NORMAL SALINE 250ML 250 ML IV SCH (20:34)
[2019-12-15] MEDS: cefTRIAXone IV Push 1 GM VIAL. IVP SCH (20:35)
[2019-12-15] MEDS: ENOXAPARIN 40 MG/0.4 ML SYRINGE. SQ SCH (20:35)
[2019-12-15] MEDS: NICOTINE POLACRILEX 2MG GUM PACKAGE of 12. BC PRN (21:22)
[2019-12-15 23:00] VITALS: BP 146/83
[2019-12-16 03:00] VITALS: BP 133/76
[2019-12-16 04:26] LABS: BASO % 1 % (0-3); EOS # 0.1 x10^3/uL (0.0-0.7); EOS % 2 % (0-3); HEMATOCRIT 34.8 % (39.0-53.0); LYMPH # 1.5 x10^3/uL (1.0-4.8); LYMPH % 19 % (24-48); MEAN CORPUSCULAR HEMOGLOBIN 32 pg (25-35); MEAN CORPUSCULAR HGB CONC 34 g/dL (31-37); MEAN CORPUSCULAR VOLUME 93 fL (79-100); MONO # 0.8 x10^3/uL (0.0-1.1); MONO % 10 % (0-9); NEUT # 5.8 x10^3/uL (1.8-7.7); NEUT % 70 % (31-73); PLATELET COUNT 290 x10^3/uL (140-400); RED BLOOD COUNT 3.75 x10^6/uL (4.30-5.70); WHITE BLOOD COUNT 8.4 x10^3/uL (4.0-11.0)
[2019-12-16 04:43] LABS: CALCIUM 7.7 mg/dL (8.5-10.1); CREATININE 0.8 mg/dL (0.7-1.3); POTASSIUM 3.9 mmol/L (3.5-5.1)
[2019-12-16 05:13] LABS: % BANDS 5 % (0-9); % EOS 6 % (0-5); % LYMPHS 17 % (24-48); % METAS 1 % (0-0); % MONOS 5 % (0-10); % SEGS 66 % (35-66); PLT ESTIMATE ADEQUATE (ADEQUATE)
[2019-12-16 07:15] VITALS: BP 145/77
[2019-12-16] MEDS: THIAMINE 100 MG TABLET. PO SCH (08:39)
[2019-12-16] MEDS: NICOTINE POLACRILEX 2MG GUM PACKAGE of 12. BC PRN ×3 (08:39→17:55)
[2019-12-16] MEDS: CHLORDIAZEPOXIDE/CLIDINIUM 5MG/2.5MG CAPSULE. PO SCH ×3 (08:39→21:44)
[2019-12-16 11:15] VITALS: BP 139/78
--- NOTE | 2019-12-16 11:19 | CONS ---
DATE OF CONSULTATION: 12/16/2019 REQUESTING PHYSICIAN: Nickolas Severino MD. REASON FOR CONSULTATION: Fever and possible rule out COVID. HISTORY OF PRESENT ILLNESS: This is a 54-year-old gentleman who has history of alcoholism, depression, hypertension, who has been living in a halfway, came in with high-grade fever, muscle aches, headache, cough and some shortness of breath. The patient has been admitted. The patient has bilateral infiltrates, lymphopenia and rule out COVID. The patient denies any nausea, vomiting or diarrhea. Denies any visual symptoms. Denies any right now headache. Denies any other complaints. The patient is put on ceftriaxone and azithromycin. PAST MEDICAL HISTORY: Positive for as I mentioned hypertension. The patient has history of seizure disorder, sleep apnea, has had abdominal surgery in the past, psychiatric problem, depression, substance abuse, alcoholism. SOCIAL HISTORY: Positive for alcoholism, occasional marijuana use and does smoke. ALLERGIES: ALLERGIC TO ASPIRIN. CURRENT MEDICATIONS: Reviewed. REVIEW OF SYSTEMS: As per HPI, all other systems reviewed are negative. PHYSICAL EXAMINATION: GENERAL: Alert, oriented gentleman, not in any distress. VITAL SIGNS: Stable with a T-max of 102.7. HEENT: NAD. NECK: Supple, no JVP, no lymphadenopathy. LUNGS: Clear. HEART: S1, S2 regular. ABDOMEN: Benign. EXTREMITIES: No edema or cyanosis. SKIN: Unremarkable. NEUROLOGIC: The patient is neurologically alert, awake and appropriate. No focal neurologic deficit. LABORATORY DATA: White count is 8.4 with lymphopenia. BUN and creatinine is normal. Chest x-ray, bilateral pulmonary infiltrates. IMPRESSION: 1. Suspected COVID. 2. Fever. 3. Bilateral infiltrates. 4. Lymphopenia. 5. History of alcoholism. 6. History of seizure disorder. 7. History of depression. RECOMMENDATIONS: Continue Rocephin and azithromycin, supportive care, oxygen support. We will check COVID-19 and we will continue to follow. Thank you very much, Dr. Severino, for giving me the opportunity to participate in this patient's care. JASMYN GALEAS MD DR: MARILEE/keila JOB#: [id number] / [id number]
--- NOTE | 2019-12-16 11:35 | PDOC ---
Infectious Disease Note Vital Sign Vital Signs Vital Signs Date Time Temp Pulse Resp B/P (MAP) Pulse Ox O2 Delivery O2 Flow Rate FiO2 12/16/19 08:00 Nasal Cannula 2.0 12/16/19 07:15 96.6 56 16 145/77 (99) 96 96.6 Labs Lab Laboratory Tests Test 12/15/19 17:47 12/16/19 03:48 Sodium Level 127 mmol/L (136-145) 128 mmol/L (136-145) Potassium Level 3.7 mmol/L (3.5-5.1) 3.9 mmol/L (3.5-5.1) Chloride Level 95 mmol/L (98-107) 96 mmol/L (98-107) Carbon Dioxide Level 23 mmol/L (21-32) 22 mmol/L (21-32) Anion Gap 9 (6-14) 10 (6-14) Blood Urea Nitrogen 9 mg/dL (8-26) 9 mg/dL (8-26) Creatinine 0.8 mg/dL (0.7-1.3) 0.8 mg/dL (0.7-1.3) Estimated GFR (Cockcroft-Gault) 100.0 100.0 Glucose Level 149 mg/dL (70-99) 123 mg/dL (70-99) Calcium Level 7.2 mg/dL (8.5-10.1) 7.7 mg/dL (8.5-10.1) White Blood Count 8.4 x10^3/uL (4.0-11.0) Red Blood Count 3.75 x10^6/uL (4.30-5.70) Hemoglobin 12.0 g/dL (13.0-17.5) Hematocrit 34.8 % (39.0-53.0) Mean Corpuscular Volume 93 fL (79-100) Mean Corpuscular Hemoglobin 32 pg (25-35) Mean Corpuscular Hemoglobin Concent 34 g/dL (31-37) Red Cell Distribution Width 18.0 % (11.5-14.5) Platelet Count 290 x10^3/uL (140-400) Neutrophils (%) (Auto) 70 % (31-73) Lymphocytes (%) (Auto) 19 % (24-48) Monocytes (%) (Auto) 10 % (0-9) Eosinophils (%) (Auto) 2 % (0-3) Basophils (%) (Auto) 1 % (0-3) Neutrophils # (Auto) 5.8 x10^3/uL (1.8-7.7) Lymphocytes # (Auto) 1.5 x10^3/uL (1.0-4.8) Monocytes # (Auto) 0.8 x10^3/uL (0.0-1.1) Eosinophils # (Auto) 0.1 x10^3/uL (0.0-0.7) Basophils # (Auto) 0.0 x10^3/uL (0.0-0.2) Segmented Neutrophils % 66 % (35-66) Band Neutrophils % 5 % (0-9) Lymphocytes % 17 % (24-48) Monocytes % 5 % (0-10) Eosinophils % 6 % (0-5) Metamyelocytes % 1 % (0-0) Platelet Estimate Adequate (ADEQUATE) Objective Assessment Patient seen consult dictated Plan Plan of Care / JASMYN GALEAS MD Dec 16, 2019 11:35
[2019-12-16] MEDS: IV NORMAL SALINE 1000ML BAG 1,000 ML IV SCH (11:40)
[2019-12-16 15:00] VITALS: BP 140/78
--- NOTE | 2019-12-16 15:07 | PDOC ---
[employer] PROGRESS NOTE Chief Complaint Chief Complaint Acute respiratory failure secondary to hypoxia Investigation for COVID Acute hyponatremia Normocytic anemia History of alcohol use Depression Hypertension Continue empiric antibiotics per ID Follow-up blood cultures Pending COVID results We will continue NS at 100 for hyponatremia Pending serum and urine osmolality and urine sodium Patient has Librium as needed for potential EtOH withdrawal Lovenox for DVT prophylaxis Regular diet Full code Discussed with RN History of Present Illness History of Present Illness 54-year-old male presents with a chief complaint of fever muscle aches headache that started on . Patient states today he started to feel shortness of breath and had an associated cough without sputum production that has been constant and increasing in intervals. There are no exacerbating or alleviating factors. Patient denies any chest pain, fevers, abdominal pain, diarrhea. Patient states he was tested for COVID at [facility] however he has not received results at this time. 12/16/2019 Patient seen and examined bedside no acute events overnight. Patient does complain of cough overnight that required Tessalon Perles. Patient did have a fever of 101 and 99. Patient saturating 95% on 2 L nasal cannula. Patient is tolerating diet Vitals/I&O Vitals/I&O: Vital Signs Date Time Temp Pulse Resp B/P (MAP) Pulse Ox O2 Delivery O2 Flow Rate FiO2 12/16/19 11:15 98.9 76 18 139/78 (98) 96 Room Air 98.9 12/16/19 08:00 2.0 I & O 12/15/19 12/15/19 12/16/19 14:59 22:59 06:59 Intake Total 240 ml 120 ml 1400 ml Output Total 655 ml 200 ml 900 ml Balance -415 ml -80 ml 500 ml Physical Exam Physical Exam: GEN: No apparent distress. Alert and oriented HEENT: Normal cephalic, atraumatic, external auditory canals are patent NECK: Supple, no JVD, no thyromegaly was noted LUNGS: Bilateral crackles HEART: RRR, S1, S2 present. Peripheral pulses intact, no obvious murmurs noted ABDOMEN: Soft, nontender. Positive bowel sounds, no organomegaly, normal bowel sounds EXTREMITIES: Without clubbing, cyanosis, or edema. Pedal pulses intact. Negative Homans sign Lungs: Clear Labs Labs: Laboratory Tests Test 12/15/19 17:47 12/16/19 03:48 Sodium Level 127 mmol/L (136-145) 128 mmol/L (136-145) Potassium Level 3.7 mmol/L (3.5-5.1) 3.9 mmol/L (3.5-5.1) Chloride Level 95 mmol/L (98-107) 96 mmol/L (98-107) Carbon Dioxide Level 23 mmol/L (21-32) 22 mmol/L (21-32) Anion Gap 9 (6-14) 10 (6-14) Blood Urea Nitrogen 9 mg/dL (8-26) 9 mg/dL (8-26) Creatinine 0.8 mg/dL (0.7-1.3) 0.8 mg/dL (0.7-1.3) Estimated GFR (Cockcroft-Gault) 100.0 100.0 Glucose Level 149 mg/dL (70-99) 123 mg/dL (70-99) Calcium Level 7.2 mg/dL (8.5-10.1) 7.7 mg/dL (8.5-10.1) White Blood Count 8.4 x10^3/uL (4.0-11.0) Red Blood Count 3.75 x10^6/uL (4.30-5.70) Hemoglobin 12.0 g/dL (13.0-17.5) Hematocrit 34.8 % (39.0-53.0) Mean Corpuscular Volume 93 fL (79-100) Mean Corpuscular Hemoglobin 32 pg (25-35) Mean Corpuscular Hemoglobin Concent 34 g/dL (31-37) Red Cell Distribution Width 18.0 % (11.5-14.5) Platelet Count 290 x10^3/uL (140-400) Neutrophils (%) (Auto) 70 % (31-73) Lymphocytes (%) (Auto) 19 % (24-48) Monocytes (%) (Auto) 10 % (0-9) Eosinophils (%) (Auto) 2 % (0-3) Basophils (%) (Auto) 1 % (0-3) Neutrophils # (Auto) 5.8 x10^3/uL (1.8-7.7) Lymphocytes # (Auto) 1.5 x10^3/uL (1.0-4.8) Monocytes # (Auto) 0.8 x10^3/uL (0.0-1.1) Eosinophils # (Auto) 0.1 x10^3/uL (0.0-0.7) Basophils # (Auto) 0.0 x10^3/uL (0.0-0.2) Segmented Neutrophils % 66 % (35-66) Band Neutrophils % 5 % (0-9) Lymphocytes % 17 % (24-48) Monocytes % 5 % (0-10) Eosinophils % 6 % (0-5) Metamyelocytes % 1 % (0-0) Platelet Estimate Adequate (ADEQUATE) Assessment and Plan Assessmemt and Plan Problems Medical Problems: (1) Fever Status: Acute (2) Person under investigation for COVID-19 Status: Acute Comment Review of Relevant I have reviewed the following items juan (where applicable) has been applied. Medications: Current Medications Medications (Trade) Dose Ordered Sig/Flaquita Route PRN Reason Start Time Stop Time Status Last Admin Dose Admin Ceftriaxone Sodium (Rocephin) 1 gm Q24H IVP 12/15/19 21:00 12/15/19 20:35 Azithromycin 500 mg/Sodium Chloride 250 ml @ 250 mls/hr Q24H IV 12/15/19 20:00 12/15/19 20:34 Nicotine Polacrilex (Nicorette Gum) 1 each PRN Q1HR PRN BC SMOKING CESSATION 12/15/19 17:15 12/16/19 08:39 Enoxaparin Sodium (Lovenox 40mg Syringe) 40 mg Q24H SQ 12/15/19 20:00 12/15/19 20:35 Justicifation of Admission Dx: Justifications for Admission: Justification of Admission Dx: Yes Respiratory Failure: Non-Cardiac Pulm Edema GIOVANNI DUNN MD Dec 16, 2019 15:06
--- NOTE | 2019-12-16 16:09 | NUR ---
SW following. Reviewed chart and spoke with RN and CM. Pt on room air and IV Rocephin. Pt COVID pending. Pt self-pay and [facility] is following. SW referred pt to strategic planner Urszula for assistance with resources as needed for transportation and medication assistance. Pt is homeless and has been staying at the [facility]. SW to continue following as needed.
[2019-12-16] MEDS: ACETAMINOPHEN 325 MG TABLET. PO PRN (17:55)
[2019-12-16 19:40] VITALS: BP 129/72
[2019-12-16] MEDS: ENOXAPARIN 40 MG/0.4 ML SYRINGE. SQ SCH (21:42)
[2019-12-16] MEDS: AZITHROMYCIN 500 MG in IV NORMAL SALINE 250ML 250 ML IV SCH (21:43)
[2019-12-16] MEDS: LACTOBACILLUS RHAMNOSUS GG 1 CAPSULE. PO SCH (21:44)
[2019-12-16] MEDS: cefTRIAXone IV Push 1 GM VIAL. IVP SCH (21:45)
[2019-12-16 22:07] VITALS: BP 137/75
[2019-12-17] MEDS: NICOTINE POLACRILEX 2MG GUM PACKAGE of 12. BC PRN ×5 (00:42→21:04)
[2019-12-17] MEDS: IV NORMAL SALINE 1000ML BAG 1,000 ML IV SCH ×2 (02:56→14:16)
[2019-12-17 03:08] VITALS: BP 145/82
[2019-12-17] MEDS: ACETAMINOPHEN 325 MG TABLET. PO PRN ×2 (05:14→14:04)
[2019-12-17] MEDS: guaiFENesin DM 200MG/20MG 10 ML SYRUP PO PRN ×2 (05:14→14:04)
[2019-12-17 07:00] VITALS: BP 136/68
[2019-12-17] MEDS: THIAMINE 100 MG TABLET. PO SCH (08:32)
[2019-12-17] MEDS: LACTOBACILLUS RHAMNOSUS GG 1 CAPSULE. PO SCH ×2 (08:32→20:33)
[2019-12-17] MEDS: CHLORDIAZEPOXIDE/CLIDINIUM 5MG/2.5MG CAPSULE. PO SCH ×3 (08:32→20:33)
[2019-12-17 09:37] LABS: CALCIUM 7.5 mg/dL (8.5-10.1); CREATININE 0.7 mg/dL (0.7-1.3); GFR 116.7
--- NOTE | 2019-12-17 10:42 | PDOC ---
Infectious Disease Note Subjective Subjective Patient is feeling okay not bad stress ROS ROS No nausea vomiting diarrhea chest pain shortness of breath Vital Sign Vital Signs Vital Signs Date Time Temp Pulse Resp B/P (MAP) Pulse Ox O2 Delivery O2 Flow Rate FiO2 12/17/19 08:00 Room Air 12/17/19 07:00 97.8 71 18 136/68 (90) 97 97.8 12/16/19 08:00 2.0 Physical Exam PHYSICAL EXAM GENERAL: Alert, oriented gentleman, not in any distress. VITAL SIGNS: Stable HEENT: NAD. NECK: Supple, no JVP, no lymphadenopathy. LUNGS: Clear. HEART: S1, S2 regular. ABDOMEN: Benign. EXTREMITIES: No edema or cyanosis. SKIN: Unremarkable. NEUROLOGIC: The patient is neurologically alert, awake and appropriate. No focal neurologic deficit. Labs Lab Laboratory Tests Test 12/17/19 08:58 Sodium Level 135 mmol/L (136-145) Potassium Level 4.0 mmol/L (3.5-5.1) Chloride Level 102 mmol/L (98-107) Carbon Dioxide Level 23 mmol/L (21-32) Anion Gap 10 (6-14) Blood Urea Nitrogen 6 mg/dL (8-26) Creatinine 0.7 mg/dL (0.7-1.3) Estimated GFR (Cockcroft-Gault) 116.7 Glucose Level 111 mg/dL (70-99) Calcium Level 7.5 mg/dL (8.5-10.1) Micro Microbiology 12/15/19 Blood Culture - Preliminary, Resulted NO GROWTH AFTER 1 DAY Objective Assessment IMPRESSION: 1. Suspected COVID. 2. Fever. 3. Bilateral infiltrates. 4. Lymphopenia. 5. History of alcoholism. 6. History of seizure disorder. 7. History of depression. Plan Plan of Care / RECOMMENDATIONS: Continue Rocephin and azithromycin, supportive care, oxygen support. We will check COVID-19 and we will continue to follow. JASMYN GALEAS MD Dec 17, 2019 10:42
[2019-12-17 11:00] VITALS: BP 146/82
--- NOTE | 2019-12-17 14:21 | PDOC ---
[employer] PROGRESS NOTE Chief Complaint Chief Complaint Acute respiratory failure secondary to hypoxia Investigation for COVID Acute hyponatremiaimproved Normocytic anemia History of alcohol use Depression Hypertension Continue empiric antibiotics per ID Follow-up blood cultures Pending repeat COVID results Continue NS at 100 Patient has Librium as needed for potential EtOH withdrawal Lovenox for DVT prophylaxis Regular diet Full code Discussed with RN History of Present Illness History of Present Illness 54-year-old male presents with a chief complaint of fever muscle aches headache that started on . Patient states today he started to feel shortness of breath and had an associated cough without sputum production that has been constant and increasing in intervals. There are no exacerbating or alleviating factors. Patient denies any chest pain, fevers, abdominal pain, diarrhea. Patient states he was tested for COVID at [facility] however he has not received results at this time. 12/17/2019 No acute events overnight. Patient seen and examined bedside. Cough has improved. Patient did fever 100.2 yesterday patient is saturating 96% on room air. We will watch overnight and plan on discharge tomorrow in the morning 12/16/2019 Patient seen and examined bedside no acute events overnight. Patient does complain of cough overnight that required Tessalon Perles. Patient did have a fever of 101 and 99. Patient saturating 95% on 2 L nasal cannula. Patient is tolerating diet Vitals/I&O Vitals/I&O: Vital Signs Date Time Temp Pulse Resp B/P (MAP) Pulse Ox O2 Delivery O2 Flow Rate FiO2 12/17/19 11:00 98.1 70 16 146/82 (103) 95 Room Air 98.1 12/16/19 08:00 2.0 I & O 12/16/19 12/16/19 12/17/19 14:59 22:59 06:59 Intake Total 450 ml 240 ml 240 ml Output Total 1775 ml 1175 ml 300 ml Balance -1325 ml -935 ml -60 ml Physical Exam Physical Exam: GENERAL: Alert, oriented gentleman, not in any distress. VITAL SIGNS: Stable HEENT: NAD. NECK: Supple, no JVP, no lymphadenopathy. LUNGS: Clear. HEART: S1, S2 regular. ABDOMEN: Benign. EXTREMITIES: No edema or cyanosis. SKIN: Unremarkable. NEUROLOGIC: The patient is neurologically alert, awake and appropriate. No focal neurologic deficit. Lungs: Clear Labs Labs: Laboratory Tests Test 12/17/19 08:58 Sodium Level 135 mmol/L (136-145) Potassium Level 4.0 mmol/L (3.5-5.1) Chloride Level 102 mmol/L (98-107) Carbon Dioxide Level 23 mmol/L (21-32) Anion Gap 10 (6-14) Blood Urea Nitrogen 6 mg/dL (8-26) Creatinine 0.7 mg/dL (0.7-1.3) Estimated GFR (Cockcroft-Gault) 116.7 Glucose Level 111 mg/dL (70-99) Calcium Level 7.5 mg/dL (8.5-10.1) Review of Systems Review of Systems: CONSTITUIONAL: Denies weight loss, fever and chills. HEENT: Denies changes in vision and hearing. RESPIRATORY: Denies SOB and cough. CV: Denies palpitations and CP. GI: Denies abdominal pain, nausea, vomiting and diarrhea. : Denies dysuria and urinary frequency. MSK: Denies myalgia and joint pain. SKIN: Denies rash and pruritus. NEUROLOGICAL: Denies headache and syncope. PSYCHIATRIC: Denies recent changes in mood. Denies anxiety and depression. Assessment and Plan Assessmemt and Plan Problems Medical Problems: (1) Fever Status: Acute (2) Person under investigation for COVID-19 Status: Acute Comment Review of Relevant I have reviewed the following items juan (where applicable) has been applied. Medications: Current Medications Medications (Trade) Dose Ordered Sig/Flaquita Route PRN Reason Start Time Stop Time Status Last Admin Dose Admin Lactobacillus Rhamnosus (Culturelle) 1 cap BID PO 12/16/19 21:00 12/17/19 08:32 Guaifenesin (Robitussin Dm) 10 ml PRN Q4HRS PRN PO COUGH 12/17/19 05:15 12/17/19 14:04 Justicifation of Admission Dx: Justifications for Admission: Justification of Admission Dx: Yes Respiratory Failure: Non-Cardiac Pulm Edema GIOVANNI DUNN MD Dec 17, 2019 14:21
[2019-12-17 15:00] VITALS: BP 155/80
[2019-12-17 16:11] LABS: URINE OSMOLALITY 558 mOsmol/kg (.)
[2019-12-17 19:00] VITALS: BP 156/86
[2019-12-17] MEDS: ENOXAPARIN 40 MG/0.4 ML SYRINGE. SQ SCH (20:33)
[2019-12-17] MEDS: AZITHROMYCIN 500 MG in IV NORMAL SALINE 250ML 250 ML IV SCH (20:35)
[2019-12-17] MEDS: cefTRIAXone IV Push 1 GM VIAL. IVP SCH (20:44)
[2019-12-17 23:00] VITALS: BP 161/86
[2019-12-18 03:00] VITALS: BP 142/71
[2019-12-18] MEDS: ACETAMINOPHEN 325 MG TABLET. PO PRN ×2 (03:27→20:00)
[2019-12-18] MEDS: IV NORMAL SALINE 1000ML BAG 1,000 ML IV SCH ×2 (03:32→20:55)
[2019-12-18 07:00] VITALS: BP 161/77
[2019-12-18] MEDS: CHLORDIAZEPOXIDE/CLIDINIUM 5MG/2.5MG CAPSULE. PO SCH ×3 (09:20→20:56)
[2019-12-18] MEDS: THIAMINE 100 MG TABLET. PO SCH (09:20)
[2019-12-18] MEDS: LACTOBACILLUS RHAMNOSUS GG 1 CAPSULE. PO SCH ×2 (09:20→20:56)
[2019-12-18 11:18] VITALS: BP 169/84
--- NOTE | 2019-12-18 11:21 | PDOC ---
Infectious Disease Note Subjective Subjective No fevers/chills last 24 hrs SOA and chest congestion, no worse Satting > 94% on room air Appetite ok Denies N/V/D ROS ROS as mentioned above Vital Sign Vital Signs Vital Signs Date Time Temp Pulse Resp B/P (MAP) Pulse Ox O2 Delivery O2 Flow Rate FiO2 12/18/19 07:00 97.2 57 18 161/77 (105) 98 Room Air 97.2 Physical Exam PHYSICAL EXAM GENERAL: Propped up in bed, alert in NAD HEENT: Oral cavity clear NECK: Supple LUNGS: Clear, nonlabored HEART: S1, S2 regular. ABDOMEN: Softa and nontender EXTREMITIES: No edema or cyanosis. SKIN: warm to touch NEUROLOGIC: Alert, awake and appropriate. Labs Micro Microbiology 12/15/19 Blood Culture - Preliminary, Resulted NO GROWTH AFTER 2 DAYS Objective Assessment Suspected COVID. neg 12/14 Fever - better Bilateral infiltrates. Lymphopenia. History of alcoholism. History of seizure disorder. History of depression. Plan Plan of Care Continue Rocephin and azithromycin Probiotics Supportive care Attending Co-Sign The patient was seen and interviewed as well as examined at the bedside. The chart was reviewed. The case was discussed. Agree with the plan of care. ELYSSA PEREZ APRN Dec 18, 2019 11:21 JASMYN GALEAS MD Dec 18, 2019 14:09
--- NOTE | 2019-12-18 12:27 | PDOC ---
[employer] PROGRESS NOTE Chief Complaint Chief Complaint Acute respiratory failure secondary to hypoxia Investigation for COVID Acute hyponatremiaimproved Normocytic anemia History of alcohol use Depression Hypertension Continue empiric antibiotics per ID Follow-up blood cultures Pending repeat COVID results Continue NS at 100 Patient has Librium as needed for potential EtOH withdrawal Lovenox for DVT prophylaxis Regular diet Full code Discussed with RN History of Present Illness History of Present Illness 54-year-old male presents with a chief complaint of fever muscle aches headache that started on . Patient states today he started to feel shortness of breath and had an associated cough without sputum production that has been constant and increasing in intervals. There are no exacerbating or alleviating factors. Patient denies any chest pain, fevers, abdominal pain, diarrhea. Patient states he was tested for COVID at [facility] however he has not received results at this time. 12/18/2019 No acute events overnight. Patient seen and examined bedside. Patient saturating 94% on room air. Patient has been afebrile in the past 24 hours. Patient is tolerating diet and ambulating without assistance. Pending COVID testing 12/17/2019 No acute events overnight. Patient seen and examined bedside. Cough has improved. Patient did fever 100.2 yesterday patient is saturating 96% on room air. We will watch overnight and plan on discharge tomorrow in the morning 12/16/2019 Patient seen and examined bedside no acute events overnight. Patient does compl ain of cough overnight that required Tessalon Perles. Patient did have a fever of 101 and 99. Patient saturating 95% on 2 L nasal cannula. Patient is tolerating diet Vitals/I&O Vitals/I&O: Vital Signs Date Time Temp Pulse Resp B/P (MAP) Pulse Ox O2 Delivery O2 Flow Rate FiO2 12/18/19 11:18 97.7 57 18 169/84 (112) 97 Room Air 97.7 I & O 12/17/19 12/17/19 12/18/19 15:00 23:00 07:00 Intake Total 675 ml 150 ml Output Total 600 ml 350 ml 300 ml Balance -600 ml 325 ml -150 ml Physical Exam Physical Exam: GENERAL: Propped up in bed, alert in NAD HEENT: Oral cavity clear NECK: Supple LUNGS: Clear, nonlabored HEART: S1, S2 regular. ABDOMEN: Softa and nontender EXTREMITIES: No edema or cyanosis. SKIN: warm to touch NEUROLOGIC: Alert, awake and appropriate. Lungs: Clear Review of Systems Review of Systems: CONSTITUIONAL: Denies weight loss, fever and chills. HEENT: Denies changes in vision and hearing. RESPIRATORY: Denies SOB and cough. CV: Denies palpitations and CP. GI: Denies abdominal pain, nausea, vomiting and diarrhea. : Denies dysuria and urinary frequency. MSK: Denies myalgia and joint pain. SKIN: Denies rash and pruritus. NEUROLOGICAL: Denies headache and syncope. PSYCHIATRIC: Denies recent changes in mood. Denies anxiety and depression. Assessment and Plan Assessmemt and Plan Problems Medical Problems: (1) Fever Status: Acute (2) Person under investigation for COVID-19 Status: Acute Comment Review of Relevant I have reviewed the following items juan (where applicable) has been applied. Justicifation of Admission Dx: Justifications for Admission: Justification of Admission Dx: Yes Respiratory Failure: Non-Cardiac Pulm Edema GIOVANNI DUNN MD Dec 18, 2019 12:27
[2019-12-18] MEDS: NICOTINE POLACRILEX 2MG GUM PACKAGE of 12. BC PRN ×2 (12:45→21:13)
[2019-12-18] MEDS: amLODIPine BESYLATE 5 MG TABLET PO SCH (12:46)
[2019-12-18] MEDS: MULTIVITAMIN with MINERAL TABLET. PO SCH (12:47)
[2019-12-18 15:01] VITALS: BP 131/84
[2019-12-18 19:00] VITALS: BP 147/82
[2019-12-18] MEDS: cefTRIAXone IV Push 1 GM VIAL. IVP SCH (20:56)
[2019-12-18] MEDS: ENOXAPARIN 40 MG/0.4 ML SYRINGE. SQ SCH (20:56)
[2019-12-18] MEDS: AZITHROMYCIN 500 MG in IV NORMAL SALINE 250ML 250 ML IV SCH (20:57)
[2019-12-18 23:00] VITALS: BP 120/72
[2019-12-19 03:00] VITALS: BP 139/83
[2019-12-19] MEDS: NICOTINE POLACRILEX 2MG GUM PACKAGE of 12. BC PRN ×5 (04:26→20:34)
[2019-12-19] MEDS: ACETAMINOPHEN 325 MG TABLET. PO PRN (04:26)
[2019-12-19 07:00] VITALS: BP 142/84
[2019-12-19] MEDS: MULTIVITAMIN with MINERAL TABLET. PO SCH (09:23)
[2019-12-19] MEDS: amLODIPine BESYLATE 5 MG TABLET PO SCH (09:23)
[2019-12-19] MEDS: CHLORDIAZEPOXIDE/CLIDINIUM 5MG/2.5MG CAPSULE. PO SCH ×3 (09:23→20:26)
[2019-12-19] MEDS: THIAMINE 100 MG TABLET. PO SCH (09:23)
[2019-12-19] MEDS: LACTOBACILLUS RHAMNOSUS GG 1 CAPSULE. PO SCH ×2 (09:23→20:26)
[2019-12-19] MEDS: IV NORMAL SALINE 1000ML BAG 1,000 ML IV SCH ×2 (09:24→20:28)
--- NOTE | 2019-12-19 10:01 | PDOC ---
Infectious Disease Note Subjective Subjective Feeling better over-all Mild cough with pink-tinged phlegm Occ SOA with activity Room air No fevers/chills last 24 hrs Appetite ok Denies N/V/D ROS ROS as mentioned above Vital Sign Vital Signs Vital Signs Date Time Temp Pulse Resp B/P (MAP) Pulse Ox O2 Delivery O2 Flow Rate FiO2 12/19/19 09:23 50 142/84 12/19/19 07:00 97.8 16 93 Room Air 97.8 12/18/19 23:00 95.0 Physical Exam PHYSICAL EXAM GENERAL: Propped up in bed, alert in NAD HEENT: Oral cavity clear NECK: Supple LUNGS: Clear, nonlabored HEART: S1, S2 regular. ABDOMEN: Soft and nontender EXTREMITIES: No edema or cyanosis. SKIN: warm to touch NEUROLOGIC: Alert, awake and appropriate. Labs Micro Microbiology 12/15/19 Blood Culture - Preliminary, Resulted NO GROWTH AFTER 3 DAYS Objective Assessment Suspected COVID. neg 12/14 and 12/16 Fever - better Bilateral infiltrates. Lymphopenia. History of alcoholism. History of seizure disorder. History of depression. Plan Plan of Care d/c azithromycin Continue Rocephin Probiotics Supportive care Attending Co-Sign The patient was seen and interviewed as well as examined at the bedside. The chart was reviewed. The case was discussed. Agree with the plan of care. ELYSSA PEREZ APRN Dec 19, 2019 10:01 JASMYN GALEAS MD Dec 19, 2019 10:34
[2019-12-19 11:48] VITALS: BP 128/76
[2019-12-19 15:03] VITALS: BP 135/77
--- NOTE | 2019-12-19 16:53 | NUR ---
Spoke with [facility] today. They do not plan on taking this pt back as he has already been discharged from there facility. There is no placement there for him. I was given a name of his protective services case worker Mr Camacho who he has worked with in the past. The number is [phone]. He maybe able to help find placement. The gentleman at [facility] also gave me a Homeless Hotline number [phone]. These can be contacted on friday. Patient was notified.
[2019-12-19 19:00] VITALS: BP 128/81
[2019-12-19] MEDS: cefTRIAXone IV Push 1 GM VIAL. IVP SCH (20:27)
[2019-12-19] MEDS: ENOXAPARIN 40 MG/0.4 ML SYRINGE. SQ SCH (20:27)
[2019-12-19 23:00] VITALS: BP 137/84
[2019-12-20] MEDS: NICOTINE POLACRILEX 2MG GUM PACKAGE of 12. BC PRN ×3 (03:04→09:32)
[2019-12-20 03:06] VITALS: BP 131/84
[2019-12-20 07:28] VITALS: BP 139/76
[2019-12-20] MEDS: MULTIVITAMIN with MINERAL TABLET. PO SCH (09:10)
[2019-12-20] MEDS: LACTOBACILLUS RHAMNOSUS GG 1 CAPSULE. PO SCH (09:10)
[2019-12-20] MEDS: amLODIPine BESYLATE 5 MG TABLET PO SCH (09:10)
[2019-12-20] MEDS: THIAMINE 100 MG TABLET. PO SCH (09:10)
[2019-12-20] MEDS: CHLORDIAZEPOXIDE/CLIDINIUM 5MG/2.5MG CAPSULE. PO SCH ×2 (09:10→15:32)
[2019-12-20] MEDS: IV NORMAL SALINE 1000ML BAG 1,000 ML IV SCH (09:11)
[2019-12-20 11:06] VITALS: BP 122/73
--- NOTE | 2019-12-20 11:13 | PDOC ---
Infectious Disease Note Subjective: Subjective Feeling better over-all Mild cough not worsening Some shortness of breath with exertion Room air Denies fever, nausea, vomiting, shortness of breath, diarrhea, abdominal pain, rash Otherwise as above Vital Signs: Vital Signs Vital Signs Date Time Temp Pulse Resp B/P (MAP) Pulse Ox O2 Delivery O2 Flow Rate FiO2 12/20/19 11:06 97.8 63 16 122/73 (89) 95 Room Air 97.8 12/19/19 08:00 95.0 Physical Exam: PHYSICAL EXAM GENERAL: Propped up in bed, alert in NAD HEENT: Oral cavity clear NECK: Supple LUNGS: Clear, nonlabored HEART: S1, S2 regular. ABDOMEN: Soft and nontender EXTREMITIES: No edema or cyanosis. SKIN: warm to touch NEUROLOGIC: Alert, awake and appropriate. Medications: Inpatient Meds: Current Medications Medications (Trade) Dose Ordered Sig/Flaquita Start Time Stop Time Status Last Admin Dose Admin Acetaminophen (Tylenol) 650 mg PRN Q4HRS PRN 12/16/19 10:30 12/19/19 04:26 650 MG Amlodipine Besylate (Norvasc) 5 mg DAILY 12/18/19 12:00 12/20/19 09:10 5 MG Azithromycin 250 ml @ 250 mls/hr 1X ONCE 12/15/19 03:00 12/15/19 03:59 DC 12/15/19 03:17 250 MLS/HR Azithromycin 500 mg/Sodium Chloride 250 ml @ 250 mls/hr Q24H 12/15/19 20:00 12/19/19 10:01 DC 12/18/19 20:57 250 MLS/HR Ceftriaxone Sodium (Rocephin) 1 gm Q24H 12/15/19 21:00 12/19/19 20:27 1 GM Chlordiazepoxide/ Clidinium (Librax) 1 cap TID 12/15/19 09:00 12/20/19 09:10 1 CAP Enoxaparin Sodium (Lovenox 40mg Syringe) 40 mg Q24H 12/15/19 20:00 12/19/19 20:27 40 MG Guaifenesin (Robitussin Dm) 10 ml PRN Q4HRS PRN 12/17/19 05:15 12/17/19 14:04 10 ML Ketorolac Tromethamine (Toradol 30mg Vial) 30 mg 1X ONCE 12/15/19 02:00 12/15/19 02:02 DC 12/15/19 02:03 30 MG Lactobacillus Rhamnosus (Culturelle) 1 cap BID 12/16/19 21:00 12/20/19 09:10 1 CAP Morphine Sulfate (Morphine Sulfate) 2 mg PRN Q2HR PRN 12/15/19 03:00 12/16/19 02:59 DC Multivitamins (Thera M Plus) 1 tab DAILY 12/18/19 12:00 12/20/19 09:10 1 TAB Nicotine Polacrilex (Nicorette Gum) 1 each PRN Q1HR PRN 12/15/19 17:15 12/20/19 09:32 1 EACH Ondansetron HCl (Zofran) 4 mg PRN Q8HRS PRN 12/15/19 03:00 12/16/19 02:59 DC 12/16/19 01:11 4 MG Sodium Chloride 1,000 ml @ 75 mls/hr [id number] 12/15/19 10:15 12/20/19 09:11 75 MLS/HR Thiamine Mononitrate (Vitamin B-1) 100 mg DAILY 12/15/19 09:00 12/20/19 09:10 100 MG Objective: Assessment: Suspected COVID. COVID neg x2 Fever - better Bilateral infiltrates. Lymphopenia. History of alcoholism. History of seizure disorder. History of depression. Plan: Plan of Care Continue Rocephin pt completed azithromycin Probiotics Supportive care TYREE GALEAS MD Dec 20, 2019 11:13
--- NOTE | 2019-12-20 11:21 | PDOC ---
PROGRESS NOTES Chief Complaint Chief Complaint Acute respiratory failure secondary to hypoxia Investigation for COVID Acute hyponatremiaimproved Normocytic anemia History of alcohol use Depression Hypertension Continue empiric antibiotics per ID Follow-up blood cultures Pending repeat COVID results Continue NS at 100 Patient has Librium as needed for potential EtOH withdrawal Lovenox for DVT prophylaxis Regular diet Full code Discussed with RN History of Present Illness History of Present Illness Mr Mccord is a 54 yo M w/ PMHx ETOH abuse, depression, HTN who presents with a chief complaint of fever muscle aches headache that started on . Patient states he started to feel shortness of breath and had an associated cough without sputum production that has been constant and increasing in intervals. There are no exacerbating or alleviating factors. Patient denies any chest pain, fevers, abdominal pain, diarrhea. Patient states he was tested for COVID at [facility]. 12/15: Patient does complain of cough overnight that required Tessalon Perles. Patient did have a fever of 101 and 99. Patient saturating 95% on 2 L nasal cannula. Patient is tolerating diet. COVID negative 12/16: Cough has improved. Patient did fever 100.2 yesterday patient is saturating 96% on room air. We will watch overnight and plan on discharge tomorrow in the morning 12/17: Patient saturating 94% on room air. Patient has been afebrile in the past 24 hours. Patient is tolerating diet and ambulating without assistance. Repeat COVID testing negative Afebrile overnight. He is feeling much better after completing IV azithromycin course and continued on IV Rocephin. He is not on O2. Vitals Vitals Vital Signs Date Time Temp Pulse Resp B/P (MAP) Pulse Ox O2 Delivery O2 Flow Rate FiO2 12/20/19 11:06 97.8 63 16 122/73 (89) 95 Room Air 97.8 12/19/19 08:00 95.0 Physical Exam Physical Exam GENERAL: Propped up in bed, alert in NAD HEENT: Oral cavity clear NECK: Supple LUNGS: Clear, nonlabored HEART: S1, S2 regular. ABDOMEN: Soft and nontender EXTREMITIES: No edema or cyanosis. SKIN: warm to touch NEUROLOGIC: Alert, awake and appropriate. Lungs: Clear Assessment and Plan Assessmemt and Plan Problems Medical Problems: (1) Fever Status: Acute (2) Person under investigation for COVID-19 Status: Acute Comment Review of Relevant I have reviewed the following items juan (where applicable) has been applied. Labs Microbiology 12/15/19 Blood Culture - Preliminary, Resulted NO GROWTH AFTER 4 DAYS Medications Current Medications Ketorolac Tromethamine (Toradol 30mg Vial) 30 mg 1X ONCE IVP Last administered on 12/15/19at 02:03; Start 12/15/19 at 02:00; Stop 12/15/19 at 02:02; Status DC Sodium Chloride 1,000 ml @ 1,000 mls/hr 1X ONCE IV Last administered on 12/15/19at 02:00; Start 12/15/19 at 02:00; Stop 12/15/19 at 02:59; Status DC Acetaminophen (Tylenol) 650 mg 1X ONCE PO Last administered on 12/15/19at 02:02; Start 12/15/19 at 02:00; Stop 12/15/19 at 02:02; Status DC Ondansetron HCl (Zofran) 4 mg 1X ONCE IVP Last administered on 12/15/19at 02:03; Start 12/15/19 at 02:00; Stop 12/15/19 at 02:02; Status DC Ceftriaxone Sodium (Rocephin) 1 gm 1X ONCE IVP Last administered on 12/15/19at 03:17; Start 12/15/19 at 03:00; Stop 12/15/19 at 03:01; Status DC Azithromycin 250 ml @ 250 mls/hr 1X ONCE IV Last administered on 12/15/19at 03:17; Start 12/15/19 at 03:00; Stop 12/15/19 at 03:59; Status DC Ondansetron HCl (Zofran) 4 mg PRN Q8HRS PRN IV NAUSEA/VOMITING Last administered on 12/16/19at 01:11; Start 12/15/19 at 03:00; Stop 12/16/19 at 02:59; Status DC Morphine Sulfate (Morphine Sulfate) 2 mg PRN Q2HR PRN IV PAIN; Start 12/15/19 at 03:00; Stop 12/16/19 at 02:59; Status DC Acetaminophen (Tylenol) 650 mg PRN Q4HRS PRN PO FEVER > 100.3'F Last administered on 12/15/19at 16:45; Start 12/15/19 at 03:00; Stop 12/16/19 at 02:59; Status DC Chlordiazepoxide/ Clidinium (Librax) 1 cap TID PO Last administered on 12/20/19at 09:10; Start 12/15/19 at 09:00 Thiamine Mononitrate (Vitamin B-1) 100 mg DAILY PO Last administered on 12/20/19at 09:10; Start 12/15/19 at 09:00 Sodium Chloride 1,000 ml @ 75 mls/hr [id number] IV Last administered on 12/20/19at 09:11; Start 12/15/19 at 10:15 Ceftriaxone Sodium (Rocephin) 1 gm Q24H IVP Last administered on 12/19/19at 20:27; Start 12/15/19 at 21:00 Azithromycin 500 mg/Sodium Chloride 250 ml @ 250 mls/hr Q24H IV Last administered on 12/18/19at 20:57; Start 12/15/19 at 20:00; Stop 12/19/19 at 10:01; Status DC Enoxaparin Sodium (Lovenox 40mg Syringe) 40 mg Q24H SQ ; Start 12/15/19 at 18:00; Stop 12/15/19 at 17:51; Status DC Nicotine Polacrilex (Nicorette Gum) 1 each PRN Q1HR PRN BC SMOKING CESSATION Last administered on 12/20/19at 09:32; Start 12/15/19 at 17:15 Enoxaparin Sodium (Lovenox 40mg Syringe) 40 mg Q24H SQ Last administered on 12/19/19at 20:27; Start 12/15/19 at 20:00 Acetaminophen (Tylenol) 650 mg PRN Q4HRS PRN PO FEVER > 100.3'F Last administered on 12/19/19at 04:26; Start 12/16/19 at 10:30 Lactobacillus Rhamnosus (Culturelle) 1 cap BID PO Last administered on 12/20/19at 09:10; Start 12/16/19 at 21:00 Guaifenesin (Robitussin Dm) 10 ml PRN Q4HRS PRN PO COUGH Last administered on 12/17/19at 14:04; Start 12/17/19 at 05:15 Amlodipine Besylate (Norvasc) 5 mg DAILY PO Last administered on 12/20/19at 09:10; Start 12/18/19 at 12:00 Multivitamins (Thera M Plus) 1 tab DAILY PO Last administered on 12/20/19at 09:10; Start 12/18/19 at 12:00 Active Scripts Active Librax Capsule (Chlordiazepoxide/Clidinium Br) 1 Each Capsule 1 Cap PO TID Vitamin B-1 (Thiamine Mononitrate) 100 Mg Tablet 1 Tab PO DAILY 30 Days Multi Vitamin Daily (Multivitamin) 1 Each Tablet 1 Tab PO DAILY 30 Days Amlodipine Besylate 5 Mg Tablet 5 Mg PO DAILY Vitals/I & O Vital Sign - Last 24 Hours 12/19/19 12/19/19 12/19/19 12/19/19 11:48 15:03 19:00 20:00 Temp 98.8 97.4 97.8 98.8 97.4 97.8 Pulse 56 64 67 Resp 16 17 20 B/P (MAP) 128/76 (93) 135/77 (96) 128/81 (97) Pulse Ox 97 95 95 O2 Delivery Room Air Room Air Room Air Room Air 12/19/19 12/20/19 12/20/19 12/20/19 23:00 03:06 07:28 09:10 Temp 98.4 98.0 97.9 98.4 98.0 97.9 Pulse 66 63 63 63 Resp 20 20 B/P (MAP) 137/84 (101) 131/84 (100) 139/76 (97) 139/76 Pulse Ox 97 95 98 O2 Delivery Room Air Room Air Room Air 12/20/19 11:06 Temp 97.8 97.8 Pulse 63 Resp 16 B/P (MAP) 122/73 (89) Pulse Ox 95 O2 Delivery Room Air Justicifation of Admission Dx: Justifications for Admission: Justification of Admission Dx: Yes Respiratory Failure: Non-Cardiac Pulm Edema CARIDAD VILLEDA MD Dec 20, 2019 11:21
--- NOTE | 2019-12-20 13:27 | NUR ---
FRANSISCO following. Reviewed chart and spoke with RN. Pt on room air and IV Rocephin. Pt COVID negative x2. Pt self-pay. FRANSISCO called and left messages for [facility] x2 today. Spoke with Yaakov Garcia, who is working on finding this patient a bed. Pt is homeless. Pt was staying at [facility] but no longer has a bed available. Spoke with pt who stated that prior to staying at the [facility] [place] Pt stated that he has a son but is not able to stay with him. Yaakov Garcia to come and see pt today. FRANSISCO following. Addendum: 12/20/19 at 1404 by ELBA MOODY Yaakov Garcia spoke with the [facility] and they will not take pt back per hx of fevers. Pt stated he does not want to call his son. Pt to discharge today, 12/20/2019. Pt has been provided with resources for homeless shelters.
[2019-12-20] MEDS ORDERED: LORA0.5T96 PO (14:28)
[2019-12-20] MEDS ORDERED: DOXY100T PO (14:28)
--- NOTE | 2019-12-20 14:33 | PDOC3 ---
Discharge Summary Visit Information Date of Admission: Dec 15, 2019 Date of Discharge: Dec 20, 2019 Admitting Diagnosis: Community acquired pneumonia Final Diagnosis Problems Medical Problems: (1) Fever Status: Acute (2) Person under investigation for COVID-19 Status: Acute Brief Hospital Course Allergies Allergies Coded Allergies Type Severity Reaction Last Updated Verified aspirin Allergy Intermediate 02/24/18 Yes Vital Signs Vital Signs Date Time Temp Pulse Resp B/P (MAP) Pulse Ox O2 Delivery O2 Flow Rate FiO2 12/20/19 11:06 97.8 63 16 122/73 (89) 95 Room Air 97.8 12/19/19 08:00 95.0 Brief Hospital Course Mr Mccord is a 54 yo M w/ PMHx ETOH abuse, depression, HTN who presents with a chief complaint of fever muscle aches headache that started on . Emily ent states he started to feel shortness of breath and had an associated cough without sputum production that has been constant and increasing in intervals. There are no exacerbating or alleviating factors. Patient denies any chest pain, fevers, abdominal pain, diarrhea. Patient states he was tested for COVID at [facility]. 12/15: Patient does complain of cough overnight that required Tessalon Perles. Patient did have a fever of 101 and 99. Patient saturating 95% on 2 L nasal cannula. Patient is tolerating diet. COVID negative 12/16: Cough has improved. Patient did fever 100.2 yesterday patient is saturating 96% on room air. We will watch overnight and plan on discharge tomorrow in the morning 12/17: Patient saturating 94% on room air. Patient has been afebrile in the past 24 hours. Patient is tolerating diet and ambulating without assistance. Repeat COVID testing negative Afebrile overnight. He is feeling much better after completing IV azithromycin course and continued on IV Rocephin. He is not on O2. He was apparently asked to leave the [facility] where he is living due to his fever and cough. He is now tested negative multiple times for COVID-19. He improved significantly after 5 days of IV treatment for community-acquired bacterial pneumonia. He is anxious to leave the hospital, he notes he will contact his son but may end up going to a homeless skilled nursing. Consults: ID Problem list: Acute respiratory failure secondary to hypoxia NEGATIVE for COVID Acute bacterial pneumonia - likely gram negative, high risk with alcohol use - 5 days doxycycline Acute hyponatremiaimproved Normocytic anemia History of alcohol use Depression Hypertension Greater than 30 minutes spent on d/c Discharge Information Condition at Discharge: Improved Follow Up: Weeks (1) Disposition/Orders: D/C to Home Scheduled Amlodipine Besylate (Amlodipine Besylate) 5 Mg Tablet, 5 MG PO DAILY for high blood pressure, #30 Prescribed by: BARBARA MURGUIA on 05/15/19 1141 Last Action: Continued on 12/18/191131 by JOCELYNN NOGUEIRA, LAI Doxycycline Hyclate (Doxycycline Hyclate) 100 Mg Tablet, 100 MG PO BID for Pneumonia for 5 Days, #10 Prescribed by: CARIDAD VILLEDA MD on 12/20/19 1428 Multivitamin (Multi Vitamin Daily) 1 Each Tablet, 1 TAB PO DAILY for mvi for 30 Days, #30 Ref 0 Prescribed by: BEA ALMEIDA on 05/17/19 125 Last Action: Converted on 12/18/191131 by JOCELYNN NOGUEIRA RN Thiamine Mononitrate (Vitamin B-1) 100 Mg Tablet, 1 TAB PO DAILY for mvi for 30 Days, #30 Ref 0 Prescribed by: BEA ALMEIDA on 05/17/191251 Last Action: Continued on 12/15/19857 by GIOVANNI DUNN MD Scheduled PRN Lorazepam (Ativan) 0.5 Mg Tablet, 0.5 MG PO PRN BID PRN for ALCOHOL WITHDRAWAL for 3 Days, #6 Prescribed by: CARIDAD VILLEDA MD on 12/20/19 1428 Discontinued Medications Chlordiazepoxide/Clidinium Br (Librax Capsule) 1 Each Capsule, 1 CAP PO TID for etoh, #90 Ref 3 Prescribed by: BEA ALMEIDA on 05/17/191251 Last Action: Continued on 12/15/19857 by GIOVANNI DUNN MD Justicifation of Admission Dx: Justifications for Admission: Justification of Admission Dx: Yes Respiratory Failure: Non-Cardiac Pulm Edema CARIDAD VILLEDA MD Dec 20, 2019 14:33
[2019-12-20 15:24] VITALS: BP 154/89
--- NOTE | 2019-12-20 17:12 | NUR ---
Pt requesting to have [employer] cab take him to [facility] to gather his belongings. Pt is aware that he no longer has a bed available there. This RN gave patient his outsole caser, Dr. Camacho, phone number, and the Homeless Hotline phone number [phone]. Pt verbalized understanding of this information.
--- NOTE | 2019-12-20 17:51 | NUR ---
Discharge Note: YONI GREEN [address] [place] [address] Discharge instructions and discharge home medications reviewed with Patient and a copy given. All questions have been answered and understanding verbalized understanding. Quitting smoking and pneumonia education given to patient. Discontinued lines and drains: Peripheral IV intact. Patient discharged to Home or Self Care with Self via Ambulated
[2019-12-20] MEDS ORDERED: DOXYCYCLINE HYCLATE 100 MG TABLET PO SCH (21:00)
== END 2019-12-20 17:53 | disposition home or self-care (01) | DRG 177 ==
LOC: ER 01:25 → 6 SOUTH 03:07
PROVIDERS: ADMIT Internal Medicine; ATTEND Internal Medicine
DX: J15.6 Pneumonia due to other Gram-negative bacteria (principal); J96.01 Acute respiratory failure with hypoxia; E87.1 Hypo-osmolality and hyponatremia; F32.9 Major depressive disorder, single episode, unspecified; F17.200 Nicotine dependence, unspecified, uncomplicated; I70.0 Atherosclerosis of aorta; D72.810 Lymphocytopenia; G40.909 Epilepsy, unspecified, not intractable, without status epilepticus; Z20.828 Contact with and (suspected) exposure to other viral communicable diseases; F12.90 Cannabis use, unspecified, uncomplicated; F10.20 Alcohol dependence, uncomplicated; D64.9 Anemia, unspecified; I10 Essential (primary) hypertension; Z59.0 Homelessness; Z88.6 Allergy status to analgesic agent; Z79.899 Other long term (current) drug therapy
CPT/HCPCS: 36415; 71045; 80048; 80053; 83880; 83930; 83935; 84300; 84484; 85007; 85025; 87040; 93005; 96361; 96365; 96375; 99285; J0456; J0696; J1650; J1885; J2405; J7030; J7050; G0378; U0003-CS